=== PATIENT | female | born 1950 | race Two or more races ===

== ENCOUNTER 2016-10-22 17:24 | Inpatient (IN) | payer MEDICAID ==
[~2016-10-22] VITALS: Ht 165.1 cm; Wt 79.2 kg
[~2016-10-22 17:24] MED LIST: ALBUAER3 IN; ASPI81TA27 PO; ATOR20TA50 PO; BISA10SU5 PO; CARI-277 PO; CHOL200021 PO; CITA10TA59 PO; CYANLIQ OR; DIPH-506 OR; FER325T PO; GABA300C8 PO; LEVO50TA7 PO; LINIOIN3 EX; LORA-205 PO; MULT-261 OR; NITR0.4S29 SL; NOR7.5T PO; OMEP20CA5 PO; PANT1INJ3 PO; PROBTAB12 OR; [UNRECOGNIZED DRUG - CODE] PO; [UNRECOGNIZED DRUG - CODE] PO; [UNRECOGNIZED DRUG - CODE] XX
[2016-10-22 18:15] LABS: Basophils # (auto) 0 uL; Basophils % (auto) 0.6 % (0.0-2.0); Eosinophils # (auto) 0.1 uL; Eosinophils % (auto) 2.9 % (0.0-7.0); Hematocrit 34.3 % (36.0-46.0); Hemoglobin 11.4 g/dL (12.2-16.2); Lymphocytes % (auto) 24.7 % (10.0-50.0); Mean Corpuscular Hgb Conc. 33.2 g/dL (32.0-36.0); Mean Corpuscular Volume 96.3 fL (80.0-100.0); Mean Platelet Volume 8.7 fL (7.4-10.4); Monocytes # (auto) 0.4 uL; Monocytes % (auto) 10.9 % (0.0-12.0); Neutrophils # (auto) 2.5 uL; Neutrophils % (auto) 60.9 % (37.0-80.0); Platelet Count (auto) 226 10^3/uL (140-450); Red Cell Distribution Width 13.9 % (11.6-16.0); White Blood Cell 4.1 10^3/uL (4.4-10.8)
[2016-10-22] MEDS ORDERED: ACETAMINOPHEN 325 MG TAB PO ONE ×2 (18:24→18:30)
[2016-10-22 18:35] LABS: Albumin 3.5 g/dL (3.4-5.0); Anion Gap 7 (5-15); Aspartate Aminotransferase 17 U/L (15-37); BUN/Creatinine Ratio 28.1; Blood Urea Nitrogen 25 mg/dL (7-18); Calcium 8.3 mg/dL (8.5-10.1); Carbon Dioxide 28 mmol/L (21-32); Chloride 106 mmol/L (98-107); GFR African American 82 mL/min; GFR Non-African American 68 mL/min; Glucose 87 mg/dL (74-106); Potassium 4.7 mmol/L (3.5-5.1); Sodium 141 mmol/L (136-145)
[2016-10-22 18:40] LABS: Alkaline Phosphatase 90 U/L (45-117); Bilirubin, Total 0.3 mg/dL (0.2-1.0); Total Protein 6.4 g/dL (6.4-8.2)
[2016-10-22] MEDS ORDERED: CARISOPRODOL 350 MG TAB PO ONE (21:15)
[2016-10-22] MEDS ORDERED: MORPHINE SULF INJ 2 MG/ML SYRINGE 1ML IV ONE (21:15)
[2016-10-22] MEDS ORDERED: ONDANSETRON HCL 4 MG/2 ML VIAL IV ONE (21:15)
[2016-10-22] MEDS ORDERED: SODIUM CHLORIDE 0.9% 1,000 ML IV ONE (21:30)
[2016-10-22 21:41] LABS: Urine RBC None Seen /hpf (0 - 4)
[2016-10-22 21:48] LABS: Urine Bilirubin Negative (Negative); Urine Blood Negative /uL (Negative); Urine Color Yellow (Yellow); Urine Glucose Normal (Normal); Urine Ketone Negative (Negative); Urine Nitrite Negative (Negative); Urine Squamous Epithelial Cell FEW /hpf (<5); Urine Urobilinogen Normal (Negative); Urine pH 5.5 (5.0-8.0)
[2016-10-22] MEDS ORDERED: HYDROcodone-ACET 5/325MG TAB PO PRN (23:30)
[2016-10-22] MEDS ORDERED: ACETAMINOPHEN 325 MG TAB PO PRN (23:30)
[2016-10-22] MEDS ORDERED: MECLIZINE HCL 25 MG TAB PO PRN (23:45)
[2016-10-23] VITALS (8 sets, daily range): BP systolic 85–146; BP diastolic 50–99
[2016-10-23] MEDS: LORazepam 0.5 MG TAB PO PRN ×2 (01:17→21:28)
[2016-10-23] MEDS: CARISOPRODOL 350 MG TAB PO PRN ×2 (01:17→21:28)
[2016-10-23] MEDS: KETOROLAC TROMETH 30 MG/ML 1ML VIAL IV PRN ×3 (02:46→19:02)
[2016-10-23 06:03] LABS: Basophils # (auto) 0 uL; Basophils % (auto) 0.5 % (0.0-2.0); Eosinophils # (auto) 0.2 uL; Eosinophils % (auto) 4.6 % (0.0-7.0); Hemoglobin 10.7 g/dL (12.2-16.2); Lymphocytes # (auto) 1.5 uL; Lymphocytes % (auto) 32.7 % (10.0-50.0); Mean Corpuscular Hemoglobin 31.6 pg (28.0-32.0); Mean Corpuscular Hgb Conc. 32.3 g/dL (32.0-36.0); Mean Corpuscular Volume 97.8 fL (80.0-100.0); Monocytes # (auto) 0.5 uL; Neutrophils # (auto) 2.3 uL; Neutrophils % (auto) 51.2 % (37.0-80.0); Platelet Count (auto) 210 10^3/uL (140-450); White Blood Cell 4.6 10^3/uL (4.4-10.8)
[2016-10-23] MEDS: traMADol HCL 50 MG TAB PO PRN ×2 (06:25→17:13)
[2016-10-23] MEDS: LEVOTHYROXINE SODIUM 50 MCG TAB PO SCH (06:25)
[2016-10-23 06:26] LABS: Potassium 4.1 mmol/L (3.5-5.1)
[2016-10-23 06:31] LABS: Albumin 3.2 g/dL (3.4-5.0); BUN/Creatinine Ratio 27.1; Calcium 8.2 mg/dL (8.5-10.1)
[2016-10-23 06:34] LABS: Bilirubin, Total 0.3 mg/dL (0.2-1.0); Total Protein 5.8 g/dL (6.4-8.2)
[2016-10-23] MEDS: FERROUS SULFATE 325 MG TAB PO SCH ×2 (09:10→17:47)
[2016-10-23] MEDS: CITALOPRAM HYDROBR 20 MG TAB PO SCH (09:10)
[2016-10-23] MEDS: ENOXAPARIN SOD 40 MG/0.4 ML SYRINGE SC SCH (09:11)
[2016-10-23] MEDS: FAMOTIDINE 20 MG TAB PO SCH ×2 (09:11→21:28)
[2016-10-23] MEDS ORDERED: PANTOPRAZOLE 40 MG TAB PO ONE (10:45)
[2016-10-23] MEDS: ONDANSETRON HCL 4 MG/2 ML VIAL IV PRN ×2 (11:27→15:56)
[2016-10-23] MEDS: MORPHINE SULF INJ 2 MG/ML SYRINGE 1ML IV PRN ×2 (11:27→15:56)
[2016-10-23] MEDS: BOOST PLUS 8 ounce PO SCH ×2 (14:41→17:47)
[2016-10-23] MEDS: ATORVASTATIN 20 MG TAB PO SCH (21:28)
[2016-10-24] VITALS (7 sets, daily range): BP systolic 89–121; BP diastolic 51–99
[2016-10-24] MEDS: MORPHINE SULF INJ 2 MG/ML SYRINGE 1ML IV PRN ×4 (01:40→20:39)
[2016-10-24] MEDS: ONDANSETRON HCL 4 MG/2 ML VIAL IV PRN ×3 (01:41→20:40)
[2016-10-24] MEDS: traMADol HCL 50 MG TAB PO PRN (06:14)
[2016-10-24] MEDS: LEVOTHYROXINE SODIUM 50 MCG TAB PO SCH (06:14)
[2016-10-24 07:06] LABS: Albumin 3.3 g/dL (3.4-5.0); BUN/Creatinine Ratio 21.7; Calcium 8.5 mg/dL (8.5-10.1); Potassium 4.4 mmol/L (3.5-5.1)
[2016-10-24 07:09] LABS: Bilirubin, Total 0.3 mg/dL (0.2-1.0); Total Protein 6.2 g/dL (6.4-8.2)
[2016-10-24 07:10] LABS: Basophils # (auto) 0 uL; Basophils % (auto) 0.5 % (0.0-2.0); Eosinophils # (auto) 0.1 uL; Eosinophils % (auto) 2.5 % (0.0-7.0); Hematocrit 34.2 % (36.0-46.0); Hemoglobin 11.2 g/dL (12.2-16.2); Lymphocytes # (auto) 1.1 uL; Lymphocytes % (auto) 17.9 % (10.0-50.0); Mean Corpuscular Hemoglobin 31.9 pg (28.0-32.0); Mean Corpuscular Hgb Conc. 32.7 g/dL (32.0-36.0); Mean Corpuscular Volume 97.4 fL (80.0-100.0); Mean Platelet Volume 9.2 fL (7.4-10.4); Monocytes # (auto) 0.5 uL; Monocytes % (auto) 7.8 % (0.0-12.0); Neutrophils # (auto) 4.2 uL; Neutrophils % (auto) 71.3 % (37.0-80.0); Platelet Count (auto) 194 10^3/uL (140-450); Red Cell Distribution Width 14.4 % (11.6-16.0); White Blood Cell 5.9 10^3/uL (4.4-10.8)
[2016-10-24] MEDS: ENOXAPARIN SOD 40 MG/0.4 ML SYRINGE SC SCH (09:10)
[2016-10-24] MEDS: FAMOTIDINE 20 MG TAB PO SCH ×2 (09:10→22:20)
[2016-10-24] MEDS: FERROUS SULFATE 325 MG TAB PO SCH ×2 (09:10→17:16)
[2016-10-24] MEDS: PANTOPRAZOLE 40 MG TAB PO SCH (09:11)
[2016-10-24] MEDS: BOOST PLUS 8 ounce PO SCH ×3 (09:11→18:48)
[2016-10-24] MEDS: CITALOPRAM HYDROBR 20 MG TAB PO SCH (09:11)
[2016-10-24] MEDS: CARISOPRODOL 350 MG TAB PO PRN (22:20)
[2016-10-24] MEDS: LORazepam 0.5 MG TAB PO PRN (22:20)
[2016-10-24] MEDS: ATORVASTATIN 20 MG TAB PO SCH (22:20)
[2016-10-25] MEDS: MORPHINE SULF INJ 2 MG/ML SYRINGE 1ML IV PRN ×2 (00:46→04:51)
[2016-10-25] MEDS: ONDANSETRON HCL 4 MG/2 ML VIAL IV PRN (00:58)
[2016-10-25 04:49] VITALS: BP 98/62
[2016-10-25] MEDS: LEVOTHYROXINE SODIUM 50 MCG TAB PO SCH (06:26)
[2016-10-25] MEDS: BOOST PLUS 8 ounce PO SCH ×3 (08:00→18:08)
[2016-10-25] MEDS: KETOROLAC TROMETH 30 MG/ML 1ML VIAL IV PRN ×2 (08:45→18:08)
[2016-10-25] MEDS: FERROUS SULFATE 325 MG TAB PO SCH ×2 (08:45→18:08)
[2016-10-25 09:00] VITALS: BP 96/54
[2016-10-25] MEDS: FAMOTIDINE 20 MG TAB PO SCH ×2 (10:27→21:29)
[2016-10-25] MEDS: CITALOPRAM HYDROBR 20 MG TAB PO SCH (10:27)
[2016-10-25] MEDS: ENOXAPARIN SOD 40 MG/0.4 ML SYRINGE SC SCH (10:27)
[2016-10-25] MEDS: PANTOPRAZOLE 40 MG TAB PO SCH (10:27)
[2016-10-25 13:00] VITALS: BP 75/40
[2016-10-25 17:00] VITALS: BP_SYST 112; BP_SYST 126; BP_SYST 94; BP_DIAS 62; BP_DIAS 70
[2016-10-25] MEDS: CARISOPRODOL 350 MG TAB PO PRN (20:18)
[2016-10-25] MEDS: LORazepam 0.5 MG TAB PO PRN (20:18)
[2016-10-25] MEDS: ATORVASTATIN 20 MG TAB PO SCH (21:28)
[2016-10-25 22:00] VITALS: BP_SYST 107; BP_SYST 111; BP_SYST 86; BP_DIAS 37; BP_DIAS 58; BP_DIAS 62
[2016-10-26] MEDS: KETOROLAC TROMETH 30 MG/ML 1ML VIAL IV PRN ×4 (01:18→21:21)
[2016-10-26 05:00] VITALS: BP_SYST 110; BP_SYST 124; BP_SYST 88; BP_DIAS 56; BP_DIAS 66; BP_DIAS 67
[2016-10-26] MEDS: LEVOTHYROXINE SODIUM 50 MCG TAB PO SCH (06:40)
[2016-10-26] MEDS: BOOST PLUS 8 ounce PO SCH ×3 (08:12→17:58)
[2016-10-26] MEDS: FERROUS SULFATE 325 MG TAB PO SCH ×2 (08:12→17:58)
[2016-10-26 09:00] VITALS: BP 104/63
[2016-10-26] MEDS: FAMOTIDINE 20 MG TAB PO SCH ×2 (09:41→21:21)
[2016-10-26] MEDS: PANTOPRAZOLE 40 MG TAB PO SCH (09:41)
[2016-10-26] MEDS: ENOXAPARIN SOD 40 MG/0.4 ML SYRINGE SC SCH (09:42)
[2016-10-26] MEDS: CITALOPRAM HYDROBR 20 MG TAB PO SCH (09:42)
[2016-10-26] MEDS: LORazepam 0.5 MG TAB PO PRN (10:41)
[2016-10-26] MEDS: FLUDROCORTISONE ACETATE 0.1 MG TAB PO SCH (12:42)
[2016-10-26 13:00] VITALS: BP 100/69
[2016-10-26 17:00] VITALS: BP 125/73
[2016-10-26] MEDS: MIDODRINE HCL 10 MG TAB PO SCH (17:58)
[2016-10-26] MEDS: ATORVASTATIN 20 MG TAB PO SCH (21:21)
[2016-10-26] MEDS: CARISOPRODOL 350 MG TAB PO PRN (21:35)
[2016-10-26] MEDS: ONDANSETRON HCL 4 MG/2 ML VIAL IV PRN (21:35)
[2016-10-26 22:07] VITALS: BP 105/67
[2016-10-27 06:00] VITALS: BP 115/60
[2016-10-27] MEDS: MIDODRINE HCL 10 MG TAB PO SCH (06:05)
[2016-10-27] MEDS: KETOROLAC TROMETH 30 MG/ML 1ML VIAL IV PRN ×2 (06:05→14:30)
[2016-10-27] MEDS: ONDANSETRON HCL 4 MG/2 ML VIAL IV PRN (06:05)
[2016-10-27] MEDS: LEVOTHYROXINE SODIUM 50 MCG TAB PO SCH (06:05)
[2016-10-27 07:30] LABS: BUN/Creatinine Ratio 20.9; Calcium 8.6 mg/dL (8.5-10.1); Potassium 3.8 mmol/L (3.5-5.1)
[2016-10-27 07:53] LABS: Basophils # (auto) 0 uL; Basophils % (auto) 0.3 % (0.0-2.0); Eosinophils # (auto) 0.2 uL; Hemoglobin 11.4 g/dL (12.2-16.2); Lymphocytes % (auto) 27.3 % (10.0-50.0); Mean Corpuscular Hemoglobin 32.2 pg (28.0-32.0); Mean Corpuscular Hgb Conc. 33.5 g/dL (32.0-36.0); Mean Corpuscular Volume 96.2 fL (80.0-100.0); Mean Platelet Volume 9.5 fL (7.4-10.4); Monocytes # (auto) 0.4 uL; Monocytes % (auto) 10.3 % (0.0-12.0); Neutrophils # (auto) 2.1 uL; Neutrophils % (auto) 57.1 % (37.0-80.0); Platelet Count (auto) 175 10^3/uL (140-450); White Blood Cell 3.6 10^3/uL (4.4-10.8)
[2016-10-27] MEDS: BOOST PLUS 8 ounce PO SCH ×2 (08:00→12:00)
[2016-10-27 09:00] VITALS: BP_SYST 102; BP_SYST 108; BP_DIAS 55; BP_DIAS 63; BP_DIAS 69
[2016-10-27] MEDS: FERROUS SULFATE 325 MG TAB PO SCH (09:18)
[2016-10-27] MEDS: FLUDROCORTISONE ACETATE 0.1 MG TAB PO SCH (09:29)
[2016-10-27] MEDS: FAMOTIDINE 20 MG TAB PO SCH (09:29)
[2016-10-27] MEDS: PANTOPRAZOLE 40 MG TAB PO SCH (09:29)
[2016-10-27] MEDS: CITALOPRAM HYDROBR 20 MG TAB PO SCH (09:29)
[2016-10-27] MEDS: ENOXAPARIN SOD 40 MG/0.4 ML SYRINGE SC SCH (09:30)
[2016-10-27] MEDS ORDERED: FLUDROCORTISONE ACETATE 0.1 MG TAB PO SCH (10:00)
[2016-10-27 13:00] VITALS: BP_SYST 113; BP_SYST 119; BP_SYST 92; BP_DIAS 60; BP_DIAS 65; BP_DIAS 74
[2016-10-27] MEDS ORDERED: FLU01T PO (13:23)
[2016-10-27 15:51] VITALS: BP 108/69
== END 2016-10-27 16:55 | disposition home or self-care (01) | DRG 206 ==
LOC: EDUNIT# 17:24 → ER 17:34 → OVERFLOW 17:35 → CENTRAL 23:58
PROVIDERS: ADMIT Internal Medicine; ATTEND Nurse Practitioner Acute Care
PROC: 4B02XSZ Measurement of Cardiac Pacemaker, External Approach (ICD-10-PCS; principal; 2016-10-22)
DX: T82.119A Breakdown (mechanical) of unspecified cardiac electronic device, initial encounter (principal); E44.0 Moderate protein-calorie malnutrition; G62.9 Polyneuropathy, unspecified; D63.8 Anemia in other chronic diseases classified elsewhere; F32.9 Major depressive disorder, single episode, unspecified; S52.612A Displaced fracture of left ulna styloid process, initial encounter for closed fracture; S62.102A Fracture of unspecified carpal bone, left wrist, initial encounter for closed fracture; E03.9 Hypothyroidism, unspecified; E66.9 Obesity, unspecified; I25.10 Atherosclerotic heart disease of native coronary artery without angina pectoris; N18.2 Chronic kidney disease, stage 2 (mild); E78.5 Hyperlipidemia, unspecified; I95.1 Orthostatic hypotension; J45.909 Unspecified asthma, uncomplicated; M79.7 Fibromyalgia; M81.0 Age-related osteoporosis without current pathological fracture; Z80.3 Family history of malignant neoplasm of breast; Z82.49 Family history of ischemic heart disease and other diseases of the circulatory system; Z83.3 Family history of diabetes mellitus; Z83.79 Family history of other diseases of the digestive system; Z98.84 Bariatric surgery status; F41.9 Anxiety disorder, unspecified; M19.90 Unspecified osteoarthritis, unspecified site; Z90.49 Acquired absence of other specified parts of digestive tract; Z90.710 Acquired absence of both cervix and uterus; Z90.89 Acquired absence of other organs; Z88.5 Allergy status to narcotic agent; Z79.82 Long term (current) use of aspirin; R26.9 Unspecified abnormalities of gait and mobility; Y93.89 Activity, other specified; Y92.89 Other specified places as the place of occurrence of the external cause; Y99.8 Other external cause status
CPT/HCPCS: 29125; 36415; 70450; 73090; 80048; 80053; 81001; 84484; 85025; 93005; 96361; 96374; 96375; 97001; 97116; 97530; J1885; J2405

== ENCOUNTER → 2016-12-30 | Outpatient (CLI) | payer MEDICAID ==
[~2016-12-30] VITALS: Ht 157.5 cm; Wt 70.3 kg
[~2016-12-30] MED LIST changes: +CALC-386 PO; +CHL4PW PO; +CHOL20002 PO; +CITA-36 PO; +CITA-73 PO; +FLU01T PO; +FLUT250M2 INH; +GABA-497 PO; +GABA-498 PO; -GABA300C8 PO; +HYDR-391 PO; +LORA2TAB10 PO; +MULT-690 PO; +OMEG1CAP36 PO; -OMEP20CA5 PO; +OMEP20CA74 PO; +PANT40T PO; +PYRI200T8 PO; +SIMV-13 PO
[2016-12-30 10:05] VITALS: BP 109/70
[2016-12-30 11:12] VITALS: BP 115/72
[2016-12-30 12:03] LABS: Basophils # (auto) 0 uL; Basophils % (auto) 0.2 % (0.0-2.0); CONDITION Y; Eosinophils # (auto) 0.1 uL; Eosinophils % (auto) 2.1 % (0.0-7.0); Hematocrit 42.1 % (36.0-46.0); Hemoglobin 13.9 g/dL (12.2-16.2); Lymphocytes # (auto) 1.1 uL; Mean Corpuscular Hemoglobin 31.9 pg (28.0-32.0); Mean Corpuscular Hgb Conc. 33.2 g/dL (32.0-36.0); Mean Corpuscular Volume 96.2 fL (80.0-100.0); Mean Platelet Volume 9.8 fL (7.4-10.4); Monocytes # (auto) 0.4 uL; Monocytes % (auto) 8.9 % (0.0-12.0); Neutrophils # (auto) 3.3 uL; Neutrophils % (auto) 66.8 % (37.0-80.0); Platelet Count (auto) 212 10^3/uL (140-450); Red Cell Distribution Width 14.7 % (11.6-16.0); White Blood Cell 4.9 10^3/uL (4.4-10.8)
[2016-12-30 12:18] LABS: BUN/Creatinine Ratio 18.3; Calcium 9.1 mg/dL (8.5-10.1); Potassium 4.3 mmol/L (3.5-5.1)
[2016-12-30 12:25] LABS: INR 1.18 (0.9-1.15); Partial Thromboplastin Time 26.5 sec (22.64-33.71)
[2016-12-30 12:37] LABS: Prothrombin Time 12.9 sec (9.37-12.3)
== END | disposition home or self-care (01) ==
LOC: Rad HDHVI 09:52
PROVIDERS: ATTEND Internal Medicine Cardiovascular Disease
DX: Z01.812 Encounter for preprocedural laboratory examination (principal); I10 Essential (primary) hypertension; J45.909 Unspecified asthma, uncomplicated; E78.5 Hyperlipidemia, unspecified; D64.9 Anemia, unspecified; R79.1 Abnormal coagulation profile
CPT/HCPCS: 36415; 80048; 85025; 85610; 85730; 93005; G0463

== ENCOUNTER 2017-01-02 08:41 | Inpatient (IN) | payer MEDICAID ==
[~2017-01-02] VITALS: Ht 157.5 cm; Wt 78.8 kg
[2017-01-02] MEDS ORDERED: ceFAZolin 1GM/50ML D5W 50 ML IV ONE (09:15)
[2017-01-02] MEDS ORDERED: VANCOMYCIN HCL 1000 MG VL IR ONE (09:15)
[2017-01-02] MEDS ORDERED: VANCOMYCIN 1GM/250ML D5W 250 ML IV ONE (09:15)
[2017-01-02] MEDS ORDERED: METOCLOPRAMIDE HCL 5MG/ml INJ 2ml VIAL IV ONE (09:30)
[2017-01-02] MEDS ORDERED: LIDOCAINE 2%HCL (LOCAL ANESTH.) INJ 20ML MDV ONE (11:44)
[2017-01-02] MEDS ORDERED: MIDAZOLAM HCL 1MG/1ML-2 ML VIAL ONE (12:13)
[2017-01-02] MEDS ORDERED: fentaNYL CITRATE 100 MCG/2 ML VL ONE (12:13)
[2017-01-02] MEDS ORDERED: ONDANSETRON HCL 4 MG/2 ML VIAL ONE (12:16)
[2017-01-02] MEDS ORDERED: SODIUM CHLORIDE 0.9% 1,000 ML IV SCH (14:01)
[2017-01-02] MEDS ORDERED: MORPHINE SULFATE 4 MG/ML SYRG IV PRN (14:15)
[2017-01-02] MEDS ORDERED: NITROGLYCERIN 0.4 MG SL TAB SL PRN (14:15)
[2017-01-02] MEDS ORDERED: ACETAMINOPHEN 325 MG TAB PO PRN (14:15)
[2017-01-02] MEDS ORDERED: HYDROcodone-ACET 10/325MG TAB ONE (14:28)
[2017-01-02] MEDS ORDERED: DEXTROSE (50%) 50ML SYRG IV PRN (16:15)
[2017-01-02] MEDS ORDERED: LORazepam 0.5 MG TAB PO PRN (16:15)
[2017-01-02 16:27] VITALS: BP 143/81
[2017-01-02] MEDS: InsuLIN REG 1unit/0.01ml Soln (100units/ml) SC SCH (17:00)
[2017-01-02] MEDS: ACCU-CHEK COMFORT CURVE STRIP VI SCH ×2 (17:00→21:25)
[2017-01-02] MEDS: CARISOPRODOL 350 MG TAB PO SCH ×2 (17:34→21:04)
[2017-01-02] MEDS ORDERED: PATIENTS OWN MEDICATION (Simvastatin 1 TAB) PO SCH ×2 (18:00)
[2017-01-02] MEDS ORDERED: ONDANSETRON HCL 4 MG/2 ML VIAL IV PRN (19:15)
[2017-01-02] MEDS: ALBUTEROL SULF 2.5 MG/0.5ML(0.5%) NEB SOLN NEB SCH ×2 (19:21→23:42)
[2017-01-02] MEDS: HYDROmorphone HCL 2 MG/ML VL IV PRN (19:45)
[2017-01-02 22:00] VITALS: BP 98/61
[2017-01-02] MEDS ORDERED: InsuLIN REG 1unit/0.01ml Soln (100units/ml) SC SCH (22:00)
[2017-01-02] MEDS ORDERED: ATORVASTATIN 20 MG TAB PO SCH (22:00)
[2017-01-02] MEDS ORDERED: diphenhdrAMINE HCL 25 MG CAP PO PRN (22:00)
[2017-01-02] MEDS: VANCOMYCIN 1GM/250ML D5W 250 ML IV SCH (22:03)
[2017-01-02] MEDS: FERROUS SULFATE 325 MG TAB PO SCH (22:03)
[2017-01-02] MEDS: GABAPENTIN 300 MG CAP PO SCH (22:04)
[2017-01-02] MEDS: BUDESONIDE (INHALATION) 0.5 MG/2 ML NEB NEB SCH (23:42)
[2017-01-03] MEDS: HYDROmorphone HCL 2 MG/ML VL IV PRN (00:43)
[2017-01-03 01:22] VITALS: BP 98/61
[2017-01-03] MEDS: CARISOPRODOL 350 MG TAB PO SCH ×4 (03:02→20:15)
[2017-01-03 05:00] VITALS: BP 97/58
[2017-01-03] MEDS: HYDROcodone-ACET 10/325MG TAB PO PRN ×3 (05:35→14:57)
[2017-01-03] MEDS: BUDESONIDE (INHALATION) 0.5 MG/2 ML NEB NEB SCH ×2 (06:15→19:46)
[2017-01-03] MEDS: ALBUTEROL SULF 2.5 MG/0.5ML(0.5%) NEB SOLN NEB SCH ×3 (06:15→19:46)
[2017-01-03] MEDS: GABAPENTIN 300 MG CAP PO SCH ×2 (06:15→14:57)
[2017-01-03] MEDS: InsuLIN REG 1unit/0.01ml Soln (100units/ml) SC SCH ×3 (06:18→17:00)
[2017-01-03] MEDS: ACCU-CHEK COMFORT CURVE STRIP VI SCH ×3 (06:18→17:00)
[2017-01-03 08:00] VITALS: BP 84/42
[2017-01-03 09:07] VITALS: BP 84/42
[2017-01-03] MEDS ORDERED: OMEPRAZOLE 20MG/10ML ORAL SUSP PO SCH (10:00)
[2017-01-03] MEDS: FERROUS SULFATE 325 MG TAB PO SCH (10:00)
[2017-01-03] MEDS ORDERED: CITALOPRAM HYDROBR 20 MG TAB PO SCH (10:00)
[2017-01-03] MEDS ORDERED: LEVOTHYROXINE SODIUM 50 MCG TAB PO SCH (10:00)
[2017-01-03] MEDS ORDERED: ATORVASTATIN 20 MG TAB PO SCH (10:00)
[2017-01-03] MEDS: VANCOMYCIN 1GM/250ML D5W 250 ML IV SCH (10:06)
[2017-01-03 13:01] VITALS: BP 92/52
[2017-01-03 17:00] VITALS: BP 105/54
[2017-01-04] MEDS ORDERED: PANTOPRAZOLE 40 MG TAB PO SCH (10:00)
== END 2017-01-03 20:30 | disposition home or self-care (01) | DRG 177 ==
LOC: CATH 08:41 → TELE-WESTW 08:42
PROVIDERS: ADMIT Internal Medicine Cardiovascular Disease; ATTEND Internal Medicine Cardiovascular Disease
PROC: 02WA3MZ Revision of Cardiac Lead in Heart, Percutaneous Approach (ICD-10-PCS; principal; 2017-01-02)
DX: R07.9 Chest pain, unspecified (principal)
CPT/HCPCS: 33218; 71010; 82962; 93005; 94640; 99152; J0690; J2250; J2405

== ENCOUNTER → 2017-01-21 | Outpatient (CLI) | payer MEDICAID ==
[~2017-01-21] MED LIST changes: -ASPI81TA27 PO; -CHOL20002 PO; -CITA10TA59 PO
[2017-01-21 10:15] VITALS: BP 116/74
[2017-01-21 10:45] VITALS: BP 122/85
== END | disposition home or self-care (01) ==
LOC: CHF HDHVI 09:59
PROVIDERS: ATTEND Internal Medicine Cardiovascular Disease
DX: Z45.010 Encounter for checking and testing of cardiac pacemaker pulse generator [battery] (principal)
CPT/HCPCS: G0463

== ENCOUNTER 2017-05-13 11:16 | Emergency (ER) | payer MEDICAID ==
[~2017-05-13] VITALS: Ht 160 cm; Wt 72.6 kg
[~2017-05-13 11:16] MED LIST changes: +[UNRECOGNIZED DRUG - CODE] PO; -[UNRECOGNIZED DRUG - CODE] PO
[2017-05-13] MEDS ORDERED: SODIUM CHLORIDE 0.9% 1,000 ML IV ONE (11:44)
[2017-05-13 12:05] LABS: Basophils # (auto) 0 uL; Eosinophils # (auto) 0.2 uL; Hemoglobin 12.5 g/dL (12.2-16.2); Monocytes # (auto) 0.5 uL
[2017-05-13 12:07] LABS: Basophils % (auto) 0.6 % (0.0-2.0); Eosinophils % (auto) 3.1 % (0.0-7.0); Hematocrit 38.5 % (36.0-46.0); Lymphocytes # (auto) 1.3 uL; Lymphocytes % (auto) 24.1 % (10.0-50.0); Mean Corpuscular Hemoglobin 33.4 pg (28.0-32.0); Mean Corpuscular Hgb Conc. 32.5 g/dL (32.0-36.0); Mean Corpuscular Volume 102.8 fL (80.0-100.0); Monocytes % (auto) 8.3 % (0.0-12.0); Neutrophils # (auto) 3.5 uL; Neutrophils % (auto) 63.9 % (37.0-80.0); Platelet Count (auto) 165 10^3/uL (140-450); White Blood Cell 5.5 10^3/uL (4.4-10.8)
[2017-05-13 12:15] LABS: Albumin 3.6 g/dL (3.4-5.0); Anion Gap 6 (5-15); Aspartate Aminotransferase 31 U/L (15-37); Blood Urea Nitrogen 15 mg/dL (7-18); Calcium 8.6 mg/dL (8.5-10.1); Carbon Dioxide 26 mmol/L (21-32); Chloride 110 mmol/L (98-107); GFR African American 100 mL/min; GFR Non-African American 83 mL/min; Glucose 99 mg/dL (74-106); Magnesium 2.5 mg/dL (1.6-2.6); Potassium 4.2 mmol/L (3.5-5.1); Sodium 142 mmol/L (136-145)
[2017-05-13 12:20] LABS: Alkaline Phosphatase 93 U/L (45-117); Bilirubin, Total 0.2 mg/dL (0.2-1.0); Total Protein 6.6 g/dL (6.4-8.2)
[2017-05-13] MEDS ORDERED: FERROUS SULFATE 300 MG/5 ML ORAL LIQ GT ONE (13:15)
[2017-05-13 13:39] VITALS: BP 114/64
== END 2017-05-13 13:39 | disposition home or self-care (01) ==
LOC: EDBD 11:16 → ER 11:16
DX: D50.9 Iron deficiency anemia, unspecified (principal); E11.9 Type 2 diabetes mellitus without complications; Z90.49 Acquired absence of other specified parts of digestive tract; Z90.710 Acquired absence of both cervix and uterus; Z95.0 Presence of cardiac pacemaker; Z79.899 Other long term (current) drug therapy; Z88.6 Allergy status to analgesic agent; Z88.5 Allergy status to narcotic agent
CPT/HCPCS: 36415; 70450; 71010; 80053; 83735; 84484; 85025; 93005; 94761; 96360; 99285; J7030

== ENCOUNTER 2017-08-09 16:11 | Inpatient (IN) | payer MEDICAID ==
[~2017-08-09] VITALS: Ht 154.9 cm; Wt 81.1 kg
[~2017-08-09 16:11] MED LIST changes: -GABA-497 PO; -GABA-498 PO; +GABA300C10 PO; +GABA400C11 PO; -HYDR-391 PO; +HYDR-392 PO
[2017-08-09] MEDS ORDERED: IPRATROPIUM BROM 0.5 MG/2.5ML INH SOL HHN ONE (16:45)
[2017-08-09] MEDS ORDERED: cefTRIAXone 1GM/10ml IVPUSH 10 ML IV ONE (16:45)
[2017-08-09] MEDS ORDERED: ALBUTEROL SULF 2.5 MG/0.5ML(0.5%) NEB SOLN HHN ONE (16:45)
[2017-08-09] MEDS ORDERED: methylPREDNISolone SOD SUCC 125 MG/2 ML VL IV ONE (16:45)
[2017-08-09 17:47] LABS: Basophils # (auto) 0 uL; Basophils % (auto) 0.9 % (0.0-2.0); Eosinophils # (auto) 0.1 uL; Hematocrit 38.5 % (36.0-46.0); Hemoglobin 12.5 g/dL (12.2-16.2); Lymphocytes # (auto) 1.4 uL; Lymphocytes % (auto) 28.7 % (10.0-50.0); Mean Corpuscular Hemoglobin 32.5 pg (28.0-32.0); Mean Corpuscular Hgb Conc. 32.5 g/dL (32.0-36.0); Mean Corpuscular Volume 100.1 fL (80.0-100.0); Monocytes # (auto) 0.7 uL; Monocytes % (auto) 14.9 % (0.0-12.0); Neutrophils # (auto) 2.7 uL; Neutrophils % (auto) 53.5 % (37.0-80.0); Platelet Count (auto) 293 10^3/uL (140-450); Red Blood Cells 3.85 10^6/uL (4.0-5.20); Red Cell Distribution Width 16.5 % (11.8-14.3)
[2017-08-09 18:08] LABS: Lactic Acid w/Reflex 3.2 mmol/L (0.4-2.0)
[2017-08-09 18:10] LABS: Albumin 3.9 g/dL (3.4-5.0); BUN/Creatinine Ratio 15.5; Bilirubin, Total 0.4 mg/dL (0.2-1.0); Calcium 9.1 mg/dL (8.5-10.1); Potassium 3.7 mmol/L (3.5-5.1); Total Protein 7.5 g/dL (6.4-8.2)
[2017-08-09 18:13] LABS: Magnesium 2.2 mg/dL (1.6-2.6)
[2017-08-09] MEDS ORDERED: SODIUM CHLORIDE 0.9% 1,000 ML IV ONE (20:30)
[2017-08-09 20:39] LABS: Urine Bacteria FEW /hpf (None Seen); Urine Blood Negative /uL (Negative); Urine Mucus FEW (None Seen); Urine Specific Gravity 1.017 (1.001-1.035); Urine WBC 14 /hpf (0 - 5)
[2017-08-09] MEDS ORDERED: KETOROLAC TROMETH 30 MG/ML 1ML VIAL IV ONE (21:00)
[2017-08-09] MEDS ORDERED: ACETAMINOPHEN 500 MG TAB PO PRN (23:30)
[2017-08-09] MEDS ORDERED: ONDANSETRON HCL 4 MG/2 ML VIAL IV PRN (23:30)
[2017-08-09] MEDS ORDERED: DEXTROSE (50%) 50ML SYRG IV PRN (23:45)
[2017-08-10] VITALS (9 sets, daily range): BP systolic 96–117; BP diastolic 59–77
[2017-08-10] MEDS: ALBUTEROL SULF 2.5 MG/0.5ML(0.5%) NEB SOLN NEB SCH ×4 (01:16→19:27)
[2017-08-10] MEDS: IPRATROPIUM BROM 0.5 MG/2.5ML INH SOL NEB SCH ×4 (01:17→19:27)
[2017-08-10] MEDS: HYDROcodone-ACET 5/325MG TAB PO PRN ×5 (01:20→20:49)
[2017-08-10] MEDS: LORazepam 0.5 MG TAB PO PRN ×2 (01:21→14:23)
[2017-08-10] MEDS ORDERED: PNEUMOCOCCAL VACC POLYS 25 MCG/0.5 ML VIAL IM SCH (05:30)
[2017-08-10 06:41] LABS: Basophils # (auto) 0 uL; Basophils % (auto) 0.1 % (0.0-2.0); Eosinophils # (auto) 0 uL; Hematocrit 34.3 % (36.0-46.0); Hemoglobin 11.3 g/dL (12.2-16.2); Lymphocytes # (auto) 0.4 uL; Mean Corpuscular Volume 100.1 fL (80.0-100.0); Monocytes # (auto) 0.2 uL; Monocytes % (auto) 4.7 % (0.0-12.0); Neutrophils # (auto) 3.9 uL; Neutrophils % (auto) 86.2 % (37.0-80.0); Platelet Count (auto) 275 10^3/uL (140-450); Red Blood Cells 3.43 10^6/uL (4.0-5.20); White Blood Cell 4.5 10^3/uL (4.4-10.8)
[2017-08-10] MEDS: InsuLIN REG 1unit/0.01ml Soln (100units/ml) SC SCH ×4 (06:54→22:00)
[2017-08-10 06:55] LABS: BUN/Creatinine Ratio 14.5; Calcium 8.5 mg/dL (8.5-10.1); Potassium 4.6 mmol/L (3.5-5.1)
[2017-08-10] MEDS: GABAPENTIN 400 MG CAP PO SCH ×3 (06:55→21:55)
[2017-08-10] MEDS: LEVOTHYROXINE SODIUM 50 MCG TAB PO SCH (06:56)
[2017-08-10] MEDS: ACCU-CHEK COMFORT CURVE STRIP VI SCH ×4 (06:56→23:25)
[2017-08-10] MEDS ORDERED: LEVO-28 PO (07:46)
[2017-08-10] MEDS ORDERED: ALBUAER3 IN (07:48)
[2017-08-10] MEDS: PANTOPRAZOLE 40 MG TAB PO SCH (09:42)
[2017-08-10] MEDS: AZITHROMYCIN 500MG/ 250ML 250 ML IV SCH (09:43)
[2017-08-11] MEDS: IPRATROPIUM BROM 0.5 MG/2.5ML INH SOL NEB SCH ×4 (00:45→17:40)
[2017-08-11] MEDS: ALBUTEROL SULF 2.5 MG/0.5ML(0.5%) NEB SOLN NEB SCH ×4 (00:45→17:41)
[2017-08-11 05:22] VITALS: BP 119/65
[2017-08-11] MEDS: LEVOTHYROXINE SODIUM 50 MCG TAB PO SCH (06:26)
[2017-08-11] MEDS: GABAPENTIN 400 MG CAP PO SCH ×3 (06:26→22:00)
[2017-08-11] MEDS: ACCU-CHEK COMFORT CURVE STRIP VI SCH ×4 (06:27→22:00)
[2017-08-11] MEDS: InsuLIN REG 1unit/0.01ml Soln (100units/ml) SC SCH ×4 (06:27→22:00)
[2017-08-11 08:00] VITALS: BP 119/74
[2017-08-11 08:15] VITALS: BP 119/72
[2017-08-11] MEDS: AZITHROMYCIN 500MG/ 250ML 250 ML IV SCH (10:00)
[2017-08-11] MEDS: PANTOPRAZOLE 40 MG TAB PO SCH (10:41)
[2017-08-11 12:12] VITALS: BP 116/73
[2017-08-11] MEDS: HYDROcodone-ACET 5/325MG TAB PO PRN ×2 (13:40→20:34)
[2017-08-11 18:07] VITALS: BP 111/71
[2017-08-11] MEDS: LORazepam 0.5 MG TAB PO PRN (18:52)
[2017-08-12 00:12] VITALS: BP 124/81
[2017-08-12] MEDS: ALBUTEROL SULF 2.5 MG/0.5ML(0.5%) NEB SOLN NEB SCH ×3 (00:41→13:00)
[2017-08-12] MEDS: IPRATROPIUM BROM 0.5 MG/2.5ML INH SOL NEB SCH ×3 (00:41→13:00)
[2017-08-12] MEDS: InsuLIN REG 1unit/0.01ml Soln (100units/ml) SC SCH ×3 (05:45→17:00)
[2017-08-12] MEDS: ACCU-CHEK COMFORT CURVE STRIP VI SCH ×3 (05:45→17:25)
[2017-08-12 05:50] VITALS: BP 100/56
[2017-08-12] MEDS: GABAPENTIN 400 MG CAP PO SCH ×2 (05:51→13:43)
[2017-08-12] MEDS: LEVOTHYROXINE SODIUM 50 MCG TAB PO SCH (05:52)
[2017-08-12 08:05] VITALS: BP 97/54
[2017-08-12] MEDS ORDERED: AZITHROMYCIN 250 MG TAB PO SCH (10:00)
[2017-08-12] MEDS: PANTOPRAZOLE 40 MG TAB PO SCH (11:03)
[2017-08-12 13:00] VITALS: BP 103/55
[2017-08-12] MEDS: HYDROcodone-ACET 5/325MG TAB PO PRN (13:43)
[2017-08-12 16:17] VITALS: BP 97/54
== END 2017-08-12 18:05 | disposition home or self-care (01) | DRG 139 ==
LOC: EDUNIT# 16:11 → ER 16:11 → EDBD 16:11 → WEST WING 16:12
PROVIDERS: ADMIT Nurse Practitioner Family; ATTEND Internal Medicine Pulmonary Disease
DX: J18.9 Pneumonia, unspecified organism (principal); J96.00 Acute respiratory failure, unspecified whether with hypoxia or hypercapnia; J45.901 Unspecified asthma with (acute) exacerbation; E11.9 Type 2 diabetes mellitus without complications; N39.0 Urinary tract infection, site not specified; D64.9 Anemia, unspecified; E03.9 Hypothyroidism, unspecified; K21.9 Gastro-esophageal reflux disease without esophagitis; K44.9 Diaphragmatic hernia without obstruction or gangrene; M79.7 Fibromyalgia; F41.9 Anxiety disorder, unspecified; K59.00 Constipation, unspecified; Z79.4 Long term (current) use of insulin; Z79.51 Long term (current) use of inhaled steroids; Z79.899 Other long term (current) drug therapy; Z80.3 Family history of malignant neoplasm of breast; Z82.49 Family history of ischemic heart disease and other diseases of the circulatory system; Z83.3 Family history of diabetes mellitus; Z90.710 Acquired absence of both cervix and uterus; Z95.0 Presence of cardiac pacemaker; Z87.442 Personal history of urinary calculi
CPT/HCPCS: 36415; 71046; 80048; 80053; 81001; 82962; 83036; 83605; 83735; 83880; 84484; 85025; 87040; 87804; 93005; 94640; 94761; 96361; 96374; 96375; J1885

== ENCOUNTER 2017-10-24 18:18 | Emergency (ER) | payer MEDICARE, MEDICAID ==
[~2017-10-24] VITALS: Ht 157.5 cm; Wt 72.6 kg
[~2017-10-24 18:18] MED LIST changes: -ATOR20TA50 PO; -BISA10SU5 PO; -CALC-386 PO; -CARI-277 PO; -CHL4PW PO; -CHOL200021 PO; -CITA-73 PO; -CYANLIQ OR; -DIPH-506 OR; -FER325T PO; -FLU01T PO; -FLUT250M2 INH; -GABA400C11 PO; -HYDR-392 PO; -LINIOIN3 EX; -LORA-205 PO; -MULT-261 OR; -MULT-690 PO; -NITR0.4S29 SL; -NOR7.5T PO; -OMEG1CAP36 PO; -OMEP20CA74 PO; -PANT1INJ3 PO; -PYRI200T8 PO; -SIMV-13 PO; -[UNRECOGNIZED DRUG - CODE] PO; -[UNRECOGNIZED DRUG - CODE] PO; -[UNRECOGNIZED DRUG - CODE] XX
[2017-10-24 19:34] LABS: Basophils # (auto) 0 uL; Eosinophils # (auto) 0.1 uL; Eosinophils % (auto) 2.4 % (0.0-7.0); Hematocrit 37.6 % (36.0-46.0); Hemoglobin 12.1 g/dL (12.2-16.2); Lymphocytes # (auto) 1.6 uL; Lymphocytes % (auto) 32.9 % (10.0-50.0); Mean Corpuscular Hemoglobin 31.4 pg (28.0-32.0); Mean Corpuscular Hgb Conc. 32.2 g/dL (32.0-36.0); Mean Corpuscular Volume 97.8 fL (80.0-100.0); Monocytes # (auto) 0.5 uL; Monocytes % (auto) 9.8 % (0.0-12.0); Neutrophils # (auto) 2.6 uL; Neutrophils % (auto) 53.9 % (37.0-80.0); Nucleated Red Blood Cells % 0.1 %; Platelet Count (auto) 210 10^3/uL (140-450); Red Blood Cells 3.85 10^6/uL (4.0-5.20); Red Cell Distribution Width 17.3 % (11.8-14.3); White Blood Cell 4.7 10^3/uL (4.4-10.8)
[2017-10-24 20:21] LABS: Alanine Aminotransferase 17 U/L (13-56); Albumin 4.3 g/dL (3.4-5.0); Alkaline Phosphatase 97 U/L (45-117); Anion Gap 7 (5-15); Aspartate Aminotransferase 19 U/L (15-37); BUN/Creatinine Ratio 17.5; Bilirubin, Total 0.2 mg/dL (0.2-1.0); Blood Urea Nitrogen 14 mg/dL (7-18); Calcium 9.1 mg/dL (8.5-10.1); Carbon Dioxide 26 mmol/L (21-32); Chloride 105 mmol/L (98-107); GFR African American 93 mL/min; GFR Non-African American 77 mL/min; Glucose 106 mg/dL (74-106); Magnesium 2.3 mg/dL (1.6-2.6); Potassium 4.6 mmol/L (3.5-5.1); Sodium 138 mmol/L (136-145); Total Protein 8.1 g/dL (6.4-8.2)
[2017-10-24 21:00] VITALS: BP 126/78
== END 2017-10-24 22:24 | disposition home or self-care (01) ==
LOC: EDBD 18:18 → ER 18:22
DX: R07.89 Other chest pain (principal); K21.9 Gastro-esophageal reflux disease without esophagitis; E11.9 Type 2 diabetes mellitus without complications; J45.909 Unspecified asthma, uncomplicated; E11.22 Type 2 diabetes mellitus with diabetic chronic kidney disease; N18.9 Chronic kidney disease, unspecified; M81.0 Age-related osteoporosis without current pathological fracture; E78.5 Hyperlipidemia, unspecified; Z90.49 Acquired absence of other specified parts of digestive tract; Z90.710 Acquired absence of both cervix and uterus; Z95.0 Presence of cardiac pacemaker
CPT/HCPCS: 36415; 71046; 76642; 80053; 83735; 84484; 85025; 93005

== ENCOUNTER → 2018-04-20 | Outpatient (CLI) | payer OTHER, MEDICAID | END | disposition home or self-care (01) | LOC: Rad HDHVI 12:41 | PROVIDERS: ATTEND Internal Medicine Cardiovascular Disease | DX: R07.89 Other chest pain (principal); R00.2 Palpitations; I49.5 Sick sinus syndrome | CPT/HCPCS: 93306 ==

== ENCOUNTER 2018-04-24 10:27 | Emergency (ER) | payer OTHER, MEDICAID ==
[~2018-04-24] VITALS: Ht 157.5 cm; Wt 76.7 kg
[~2018-04-24 10:27] MED LIST changes: -ADENOSINE 65 MG in GIVE UN-DILUTED 0 ML IV ONE; -ADENOSINE 90 MG/30 ML INJ IV ONE
[2018-04-24 10:34] VITALS: BP 124/66
[2018-04-24] MEDS ORDERED: DEXAMETHASONE SOD PHOS 10MG/1ML VIAL INJ IM ONE (12:00)
[2018-04-24] MEDS ORDERED: KETOROLAC TROMETH 60MG/2ML VIAL IM ONE (12:00)
== END 2018-04-24 13:34 | disposition home or self-care (01) ==
LOC: ER 10:27
DX: M79.661 Pain in right lower leg (principal); E11.22 Type 2 diabetes mellitus with diabetic chronic kidney disease; N18.9 Chronic kidney disease, unspecified; J45.909 Unspecified asthma, uncomplicated; K21.9 Gastro-esophageal reflux disease without esophagitis; E78.5 Hyperlipidemia, unspecified; Z90.49 Acquired absence of other specified parts of digestive tract; Z90.710 Acquired absence of both cervix and uterus; Z96.89 Presence of other specified functional implants
CPT/HCPCS: 93971; 96372; 99284; J1100; J1885

== ENCOUNTER → 2018-04-24 | Outpatient (CLI) | payer OTHER, MEDICAID ==
[~2018-04-24] VITALS: Ht 157.5 cm; Wt 77.1 kg
[~2018-04-24] MED LIST changes: +ADENOSINE 65 MG in GIVE UN-DILUTED 0 ML IV ONE; +ADENOSINE 90 MG/30 ML INJ IV ONE
== END | disposition home or self-care (01) ==
LOC: Rad HDHVI 08:06
PROVIDERS: ATTEND Internal Medicine Cardiovascular Disease
DX: I49.5 Sick sinus syndrome (principal); E11.9 Type 2 diabetes mellitus without complications
CPT/HCPCS: 78452; 93005; 96374; 96375; A9500; J0153

== ENCOUNTER 2018-05-06 05:17 | Emergency (ER) | payer OTHER, MEDICAID ==
[~2018-05-06] VITALS: Ht 152.4 cm; Wt 81.6 kg
[2018-05-06] MEDS ORDERED: NALBUPHINE HCL 10 MG/1ml INJECTION IM ONE (07:15)
[2018-05-06] MEDS ORDERED: HYDROcodone-ACET 7.5/325MG TAB PO ONE (07:15)
[2018-05-06 07:20] VITALS: BP 104/76
== END 2018-05-06 07:26 | disposition home or self-care (01) ==
LOC: EDBD 05:17 → ER 05:21
DX: S83.91XA Sprain of unspecified site of right knee, initial encounter (principal); E11.22 Type 2 diabetes mellitus with diabetic chronic kidney disease; N18.9 Chronic kidney disease, unspecified; J45.909 Unspecified asthma, uncomplicated; K21.9 Gastro-esophageal reflux disease without esophagitis; E78.5 Hyperlipidemia, unspecified; Z90.49 Acquired absence of other specified parts of digestive tract; Z90.710 Acquired absence of both cervix and uterus; Z96.89 Presence of other specified functional implants; W06.XXXA Fall from bed, initial encounter; Y93.89 Activity, other specified; Y92.89 Other specified places as the place of occurrence of the external cause; Y99.8 Other external cause status
CPT/HCPCS: 73562

== ENCOUNTER → 2019-07-29 | Outpatient (CLI) | payer MEDICARE, MEDICAID ==
[~2019-07-29] MED LIST changes: +ACET-1156 PO; +AMIT25TA9 PO; +CHOL20007 OR; +MELA3TAB27 PO
== END | disposition home or self-care (01) ==
LOC: Rad HDHVI 14:17
PROVIDERS: ATTEND Internal Medicine Cardiovascular Disease
DX: I34.0 Nonrheumatic mitral (valve) insufficiency (principal); J44.9 Chronic obstructive pulmonary disease, unspecified; E11.9 Type 2 diabetes mellitus without complications; R00.2 Palpitations
CPT/HCPCS: 93306

== ENCOUNTER → 2019-08-03 | Outpatient (CLI) | payer MEDICARE, MEDICAID ==
[~2019-08-03] VITALS: Ht 157.5 cm; Wt 73.5 kg
[~2019-08-03] MED LIST changes: +ADENOSINE 62 MG in GIVE UN-DILUTED 0 ML IV ONE; +ADENOSINE 90 MG/30 ML INJ IV ONE
== END | disposition home or self-care (01) ==
LOC: Rad HDHVI 13:56
PROVIDERS: ATTEND Internal Medicine Cardiovascular Disease
DX: I49.5 Sick sinus syndrome (principal); R07.89 Other chest pain; E11.9 Type 2 diabetes mellitus without complications; M54.5 Low back pain; E78.00 Pure hypercholesterolemia, unspecified; Z95.0 Presence of cardiac pacemaker
CPT/HCPCS: 78452; 93005; 96374; 96375; A9500; J0153

== ENCOUNTER 2020-04-09 13:57 | Emergency (ER) | payer MEDICARE, MEDICAID ==
[~2020-04-09] VITALS: Ht 167.6 cm; Wt 72.6 kg
[~2020-04-09 13:57] MED LIST changes: -ADENOSINE 62 MG in GIVE UN-DILUTED 0 ML IV ONE; -ADENOSINE 90 MG/30 ML INJ IV ONE; -LORA2TAB10 PO; +LORA2TAB12 PO
[2020-04-09 14:47] LABS: Basophils # (auto) 0 10 ^3/uL (0-0.2); Basophils % (auto) 0.3 % (0.0-2.0); Eosinophils # (auto) 0.2 10 ^3/uL (0-0.8); Eosinophils % (auto) 3.4 % (0.0-7.0); Hematocrit 42.8 % (36.0-46.0); Hemoglobin 14.3 g/dL (12.2-16.2); Lymphocytes # (auto) 1.4 10 ^3/uL (0.4-5.4); Lymphocytes % (auto) 27.8 % (10.0-50.0); Mean Corpuscular Hemoglobin 31.2 pg (28.0-32.0); Mean Corpuscular Hgb Conc. 33.5 g/dL (32.0-36.0); Mean Corpuscular Volume 93.1 fL (80.0-100.0); Monocytes # (auto) 0.5 10 ^3/uL (0-1.3); Monocytes % (auto) 9.1 % (0.0-12.0); Neutrophils # (auto) 2.9 10 ^3/uL (1.6-8.6); Neutrophils % (auto) 59.4 % (37.0-80.0); Nucleated Red Blood Cells % 0.1 %; Platelet Count (auto) 197 10^3/uL (140-450); Red Blood Cells 4.59 10^6/uL (4.0-5.20)
[2020-04-09 14:57] LABS: Albumin 4.1 g/dL (3.4-5.0); Anion Gap 7 (5-15); BUN/Creatinine Ratio 18.5; Blood Urea Nitrogen 17 mg/dL (7-18); Calcium 9.8 mg/dL (8.5-10.1); Carbon Dioxide 28 mmol/L (21-32); Chloride 102 mmol/L (98-107); GFR African American 78 mL/min; GFR Non-African American 65 mL/min; Glucose 99 mg/dL (74-106); Sodium 137 mmol/L (136-145)
[2020-04-09 15:02] LABS: Alanine Aminotransferase 35 U/L (13-56); Alkaline Phosphatase 104 U/L (45-117); Aspartate Aminotransferase 25 U/L (15-37); Bilirubin, Total 0.3 mg/dL (0.2-1.0); Total Protein 7.7 g/dL (6.4-8.2)
[2020-04-09] MEDS ORDERED: ONDANSETRON HCL 4 MG/2 ML VIAL IV ONE (17:30)
[2020-04-09] MEDS ORDERED: MORPHINE SULFATE 4 MG/ML SYR/VIAL IV ONE ×2 (17:30→21:15)
[2020-04-09 18:35] VITALS: BP 118/66
[2020-04-09 23:46] LABS: Urine Bacteria FEW /hpf (None Seen); Urine Blood Negative /uL (Negative); Urine Specific Gravity 1.016 (1.001-1.035); Urine WBC 13 /hpf (0 - 5)
== END 2020-04-09 23:40 | disposition still patient (30) ==
LOC: ER 13:57 → EDBD 13:57 → ER 23:40
DX: R53.1 Weakness (principal); R51.9 Headache, unspecified; E11.22 Type 2 diabetes mellitus with diabetic chronic kidney disease; N18.9 Chronic kidney disease, unspecified; K21.9 Gastro-esophageal reflux disease without esophagitis; E78.5 Hyperlipidemia, unspecified; J44.9 Chronic obstructive pulmonary disease, unspecified; Z90.49 Acquired absence of other specified parts of digestive tract; Z90.710 Acquired absence of both cervix and uterus
CPT/HCPCS: 36415; 70450; 71045; 80053; 81001; 84484; 85025; 93005; 96374; 96375; 96376; 99285; J2270; J2405

== ENCOUNTER 2020-04-12 21:43 | Inpatient (IN) | payer MEDICARE, MEDICAID ==
[~2020-04-12] VITALS: Ht 157.5 cm; Wt 78.4 kg
[2020-04-12 22:55] LABS: Basophils # (auto) 0 10 ^3/uL (0-0.2); Basophils % (auto) 0.2 % (0.0-2.0); Eosinophils # (auto) 0.1 10 ^3/uL (0-0.8); Eosinophils % (auto) 0.6 % (0.0-7.0); Hematocrit 44.7 % (36.0-46.0); Hemoglobin 14.9 g/dL (12.2-16.2); Lymphocytes # (auto) 0.9 10 ^3/uL (0.4-5.4); Lymphocytes % (auto) 8.4 % (10.0-50.0); Mean Corpuscular Hemoglobin 31.4 pg (28.0-32.0); Mean Corpuscular Hgb Conc. 33.4 g/dL (32.0-36.0); Monocytes # (auto) 0.4 10 ^3/uL (0-1.3); Neutrophils # (auto) 9.2 10 ^3/uL (1.6-8.6); Neutrophils % (auto) 86.8 % (37.0-80.0); Nucleated Red Blood Cells % 0.1 %; Platelet Count (auto) 200 10^3/uL (140-450); Red Blood Cells 4.75 10^6/uL (4.0-5.20); Red Cell Distribution Width 14.8 % (11.8-14.3); White Blood Cell 10.5 10^3/uL (4.4-10.8)
[2020-04-12 23:15] LABS: Albumin 4.5 g/dL (3.4-5.0); Potassium 4.8 mmol/L (3.5-5.1)
[2020-04-12 23:16] LABS: Urine Bacteria MANY /hpf (None Seen); Urine Blood Negative /uL (Negative); Urine Hyaline Cast FEW /lpf (0 - 2); Urine Mucus FEW (None Seen); Urine Specific Gravity 1.016 (1.001-1.035); Urine WBC 4 /hpf (0 - 5)
[2020-04-12 23:18] LABS: BUN/Creatinine Ratio 21.7
[2020-04-12 23:29] LABS: Bilirubin, Total 0.3 mg/dL (0.2-1.0); Total Protein 7.6 g/dL (6.4-8.2)
[2020-04-13] MEDS ORDERED: MORPHINE SULF INJ 2 MG/ML SYRINGE 1ML IV ONE (05:30)
[2020-04-13] MEDS ORDERED: ONDANSETRON HCL 4 MG/2 ML VIAL IV ONE (05:30)
[2020-04-13] MEDS ORDERED: HYDROmorphone HCL 2 MG/ML VL IV ONE (09:30)
[2020-04-13] MEDS ORDERED: GASTROGRAFIN 120 ML SOL ONE (09:46)
[2020-04-13] MEDS ORDERED: MORPHINE SULF INJ 2 MG/ML SYRINGE 1ML IV PRN (10:00)
[2020-04-13] MEDS: LORazepam 0.5 MG TAB PO SCH ×2 (10:00→21:42)
[2020-04-13] MEDS ORDERED: SOD CHL 0.9%/ KCL 40MEQ 1,000 ML IV ONE (10:00)
[2020-04-13] MEDS ORDERED: NITROGLYCERIN 0.4 MG SL TAB SL PRN (10:00)
--- NOTE | 2020-04-13 10:55 | NUR ---
MS admit from ER [facility], AVONELIJAH admitted to tele/MS after SBAR received. Patient oriented to Delphine burnette RN, unit, room, bed, and unit policies regarding patient care and visiting hours. Patient weighed by bedscale and encouraged to call if they need something. All questions and concerns addressed, patient verbalized understanding.
[2020-04-13] MEDS: PANTOPRAZOLE 40 MG/10 ML VIAL INJ IV SCH (11:04)
--- NOTE | 2020-04-13 12:00 | NUR ---
DIARRHEA PATIENT HAVING MULTIPLE LARGE BOUTS OF DIARRHEA. HYGIENE ITEMS PROVIDED TO PATIENT. WILL CONTINUE CARE.
[2020-04-13] MEDS: LEVOTHYROXINE SODIUM 25 MCG TAB PO SCH (12:42)
[2020-04-13 13:07] VITALS: BP 124/70
--- NOTE | 2020-04-13 13:30 | NUR ---
PAGED PAGE OUT TO DR ROMERO REGARDING NGT ORDER. AWAITING CALL BACK.
[2020-04-13 16:33] VITALS: BP 153/85
[2020-04-13] MEDS: AMITRIPTYLINE HCL 25 MG TAB PO SCH (18:37)
--- NOTE | 2020-04-13 18:46 | NUR ---
RECEIVED CALL FROM MD SPOKE WITH DR ROMERO REGARDING NEED FOR NGT. PER DR ROMERO CANCEL NGT ORDER. ORDER READ BACK AND VERIFIED, WILL CARRY OUT AND CONTINUE CARE.
--- NOTE | 2020-04-13 19:00 | NUR ---
Opening Shift Note Assumed care of patient, awake and alert. No S/S of distress/SOB or pain. Instructed on POC and to call for assist PRN, will continue to monitor for changes Q1hr and PRN.
[2020-04-13 22:00] VITALS: BP 107/59
[2020-04-14 05:00] VITALS: BP 103/54
[2020-04-14] MEDS: LEVOTHYROXINE SODIUM 25 MCG TAB PO SCH (06:17)
[2020-04-14 08:49] VITALS: BP 105/59
[2020-04-14] MEDS: PANTOPRAZOLE 40 MG/10 ML VIAL INJ IV SCH (09:11)
[2020-04-14] MEDS: HYDROmorphone HCL 2 MG/ML VL IV PRN ×2 (09:11→14:18)
[2020-04-14] MEDS: LORazepam 0.5 MG TAB PO SCH (09:11)
[2020-04-14 12:35] VITALS: BP 92/51
[2020-04-14 16:51] VITALS: BP 107/57
[2020-04-14 17:03] VITALS: BP 132/72
[2020-04-14] MEDS: AMITRIPTYLINE HCL 25 MG TAB PO SCH (17:46)
--- NOTE | 2020-04-14 18:13 | NUR ---
Discharge instructions given as ordered. Encourage to follow up with PMD as instructed. All questions and concerns addressed. Patient verbalized understanding. Medication reconciliation form completed and copy given to patient. IV removed with catheter intact, pressure dressing applied. Patient taken to vehicle via wheelchair with all personal belongings, accompanied by staff. No distress noted at time of departure.
== END 2020-04-14 18:11 | disposition home or self-care (01) | DRG 389 ==
LOC: EDBD 21:43 → ER 21:47 → OVERFLOW 21:48 → WEST WING 04-13 11:42
PROVIDERS: ADMIT Internal Medicine Cardiovascular Disease; ATTEND Internal Medicine Cardiovascular Disease
DX: K56.699 Other intestinal obstruction unspecified as to partial versus complete obstruction (principal); N39.0 Urinary tract infection, site not specified; R64 Cachexia; I49.5 Sick sinus syndrome; J44.9 Chronic obstructive pulmonary disease, unspecified; K58.9 Irritable bowel syndrome, unspecified; Z79.899 Other long term (current) drug therapy; Z82.49 Family history of ischemic heart disease and other diseases of the circulatory system; Z83.3 Family history of diabetes mellitus; Z90.710 Acquired absence of both cervix and uterus; Z90.49 Acquired absence of other specified parts of digestive tract; Z83.49 Family history of other endocrine, nutritional and metabolic diseases; E11.22 Type 2 diabetes mellitus with diabetic chronic kidney disease; I12.9 Hypertensive chronic kidney disease with stage 1 through stage 4 chronic kidney disease, or unspecified chronic kidney disease; N18.9 Chronic kidney disease, unspecified
CPT/HCPCS: 36415; 70450; 71045; 74176; 80053; 81001; 84132; 84484; 85025; 93005; 96374; 96375; 96376; C9113; G0378; J2405

== ENCOUNTER → 2020-05-09 | Outpatient (CLI) | payer MEDICARE, MEDICAID ==
[~2020-05-09] MED LIST changes: -GABA300C10 PO; -MELA3TAB27 PO; -PANT40T PO
[2020-05-09 12:07] LABS: Basophils # (auto) 0 10 ^3/uL (0-0.2); Basophils % (auto) 0.6 % (0.0-2.0); Eosinophils # (auto) 0.2 10 ^3/uL (0-0.8); Hematocrit 39.1 % (36.0-46.0); Hemoglobin 13.1 g/dL (12.2-16.2); Lymphocytes % (auto) 22.3 % (10.0-50.0); Mean Corpuscular Hemoglobin 31.4 pg (28.0-32.0); Mean Corpuscular Hgb Conc. 33.5 g/dL (32.0-36.0); Mean Corpuscular Volume 93.8 fL (80.0-100.0); Monocytes # (auto) 0.4 10 ^3/uL (0-1.3); Monocytes % (auto) 9.2 % (0.0-12.0); Neutrophils # (auto) 2.8 10 ^3/uL (1.6-8.6); Neutrophils % (auto) 62.9 % (37.0-80.0); Platelet Count (auto) 186 10^3/uL (140-450); Red Blood Cells 4.17 10^6/uL (4.0-5.20); Red Cell Distribution Width 14.3 % (11.8-14.3); White Blood Cell 4.5 10^3/uL (4.4-10.8)
[2020-05-09 12:10] LABS: Urine Blood Negative /uL (Negative); Urine Specific Gravity 1.021 (1.001-1.035)
[2020-05-09 12:22] LABS: Potassium 4.5 mmol/L (3.5-5.1)
[2020-05-09 12:30] LABS: Free T4 (Free Thyroxine) 0.88 ng/dL (0.89-1.76)
[2020-05-09 12:31] LABS: Albumin 3.7 g/dL (3.4-5.0); BUN/Creatinine Ratio 18.2; Bilirubin, Total 0.3 mg/dL (0.2-1.0); Calcium 9.2 mg/dL (8.5-10.1); Total Protein 7.3 g/dL (6.4-8.2)
== END | disposition home or self-care (01) ==
LOC: LAB 08:20
PROVIDERS: ATTEND Internal Medicine Cardiovascular Disease
DX: E11.9 Type 2 diabetes mellitus without complications (principal); D51.3 Other dietary vitamin B12 deficiency anemia; I10 Essential (primary) hypertension; E55.9 Vitamin D deficiency, unspecified; D64.9 Anemia, unspecified; R00.2 Palpitations; R53.1 Weakness; R30.0 Dysuria
CPT/HCPCS: 36415; 80053; 80061; 81003; 82306; 82607; 83036; 84439; 84443; 85025; 87086; 87088; 87186

== ENCOUNTER 2020-10-13 20:52 | Inpatient (IN) | payer MEDICARE, MEDICAID ==
[~2020-10-13] VITALS: Ht 157.5 cm; Wt 78.1 kg
[~2020-10-13 20:52] MED LIST changes: -CITA-36 PO; +CITA40TA12 PO
[2020-10-13] MEDS ORDERED: SODIUM CHLORIDE 0.9% 1,000 ML IVB ONE (21:30)
[2020-10-13 22:11] LABS: Basophils # (auto) 0 10 ^3/uL (0-0.2); Basophils % (auto) 0.1 % (0.0-2.0); Eosinophils # (auto) 0.2 10 ^3/uL (0-0.8); Hematocrit 43.3 % (36.0-46.0); Hemoglobin 14.7 g/dL (12.2-16.2); Lymphocytes # (auto) 0.9 10 ^3/uL (0.4-5.4); Lymphocytes % (auto) 9.5 % (10.0-50.0); Mean Corpuscular Hemoglobin 31.3 pg (28.0-32.0); Mean Corpuscular Hgb Conc. 33.9 g/dL (32.0-36.0); Mean Corpuscular Volume 92.2 fL (80.0-100.0); Monocytes # (auto) 0.6 10 ^3/uL (0-1.3); Monocytes % (auto) 6.4 % (0.0-12.0); Neutrophils # (auto) 7.9 10 ^3/uL (1.6-8.6); Platelet Count (auto) 199 10^3/uL (140-450); White Blood Cell 9.6 10^3/uL (4.4-10.8)
[2020-10-13] MEDS ORDERED: MORPHINE SULF INJ 2 MG/ML SYRINGE 1ML IV ONE (22:15)
[2020-10-13] MEDS ORDERED: ONDANSETRON HCL 4 MG/2 ML VIAL IV ONE (22:15)
[2020-10-13] MEDS ORDERED: metroNIDAZOLE 500MG/100ML 100 ML IV ONE (22:15)
[2020-10-13] MEDS ORDERED: CIPROFLOXACIN 400MG/200ML 200 ML IV ONE (22:15)
[2020-10-13 22:29] LABS: Albumin 4.2 g/dL (3.4-5.0); Anion Gap 9 (5-15); Blood Urea Nitrogen 11 mg/dL (7-18); Calcium 9.7 mg/dL (8.5-10.1); Carbon Dioxide 24 mmol/L (21-32); Chloride 103 mmol/L (98-107); Glucose 121 mg/dL (74-106); Potassium 3.8 mmol/L (3.5-5.1); Sodium 136 mmol/L (136-145)
[2020-10-13 22:34] LABS: Alanine Aminotransferase 25 U/L (13-56); Alkaline Phosphatase 124 U/L (45-117); Aspartate Aminotransferase 15 U/L (15-37); BUN/Creatinine Ratio 9.5; Bilirubin, Total 0.4 mg/dL (0.2-1.0); GFR African American 60 mL/min; GFR Non-African American 49 mL/min; Total Protein 7.9 g/dL (6.4-8.2)
[2020-10-13 23:02] LABS: INR 1.06 (0.9-1.15); Partial Thromboplastin Time 23.4 sec (23.0-31.2)
[2020-10-13 23:05] LABS: Magnesium 2.6 mg/dL (1.6-2.6)
[2020-10-14] VITALS (7 sets, daily range): BP systolic 90–103; BP diastolic 45–89
[2020-10-14] MEDS ORDERED: MORPHINE SULF INJ 2 MG/ML SYRINGE 1ML IV PRN (01:15)
[2020-10-14] MEDS ORDERED: NITROGLYCERIN 0.4 MG SL TAB SL PRN (01:15)
[2020-10-14] MEDS: SODIUM CHLORIDE 0.9% 1,000 ML IV SCH ×2 (01:15→16:41)
[2020-10-14 01:44] LABS: Urine Bacteria FEW /hpf (None Seen); Urine Blood Negative /uL (Negative); Urine Hyaline Cast FEW /lpf (0 - 2); Urine Specific Gravity 1.005 (1.001-1.035); Urine WBC 1 /hpf (0 - 5)
[2020-10-14] MEDS: HYDROmorphone HCL 2 MG/ML VL IV PRN ×2 (04:47→16:18)
[2020-10-14] MEDS ORDERED: PANT40TA2 PO (05:12)
[2020-10-14] MEDS ORDERED: MONT10TA42 PO (05:12)
[2020-10-14] MEDS ORDERED: TRAM50TA2 PO (05:12)
[2020-10-14] MEDS: ALBUTEROL SULF 2.5 MG/0.5ML(0.5%) NEB SOLN NEB SCH ×4 (05:53→23:59)
[2020-10-14] MEDS: metroNIDAZOLE 500MG/100ML 100 ML IV SCH ×3 (06:06→17:35)
[2020-10-14] MEDS: PIPERACILLIN-TAZO 4.5GM 100 ML IV SCH ×3 (06:07→21:09)
[2020-10-14] MEDS: CITALOPRAM HYDROBR 20 MG TAB PO SCH (09:02)
[2020-10-14] MEDS ORDERED: LEVOTHYROXINE SODIUM 50 MCG TAB PO SCH (10:00)
[2020-10-14] MEDS ORDERED: AMITRIPTYLINE HCL 25 MG TAB ONE ×2 (21:45→21:52)
[2020-10-14] MEDS: AMITRIPTYLINE HCL 25 MG TAB PO SCH (21:52)
[2020-10-14] MEDS: LORazepam 0.5 MG TAB PO PRN (22:01)
[2020-10-15] MEDS: metroNIDAZOLE 500MG/100ML 100 ML IV SCH ×5 (00:11→23:35)
[2020-10-15] MEDS: SODIUM CHLORIDE 0.9% 1,000 ML IV SCH ×2 (03:26→17:15)
[2020-10-15] MEDS: ALBUTEROL SULF 2.5 MG/0.5ML(0.5%) NEB SOLN NEB SCH ×3 (04:37→18:42)
[2020-10-15 04:53] VITALS: BP 108/72
[2020-10-15] MEDS: PIPERACILLIN-TAZO 4.5GM 100 ML IV SCH ×3 (06:04→21:17)
[2020-10-15] MEDS: LEVOTHYROXINE SODIUM 50 MCG TAB PO SCH (06:05)
[2020-10-15 09:09] VITALS: BP 108/50
[2020-10-15] MEDS: CITALOPRAM HYDROBR 20 MG TAB PO SCH (09:11)
[2020-10-15] MEDS: HYDROmorphone HCL 2 MG/ML VL IV PRN (10:35)
[2020-10-15 13:00] VITALS: BP_SYST 110; BP_SYST 92; BP_DIAS 53; BP_DIAS 56
[2020-10-15 17:00] VITALS: BP 122/69
[2020-10-15] MEDS: LORazepam 0.5 MG TAB PO PRN (21:17)
[2020-10-15] MEDS: AMITRIPTYLINE HCL 25 MG TAB PO SCH (21:18)
[2020-10-15 22:00] VITALS: BP 122/61
[2020-10-16] MEDS: ALBUTEROL SULF 2.5 MG/0.5ML(0.5%) NEB SOLN NEB SCH ×4 (00:15→20:05)
[2020-10-16 05:00] VITALS: BP 112/55
[2020-10-16] MEDS: metroNIDAZOLE 500MG/100ML 100 ML IV SCH ×4 (05:04→22:49)
[2020-10-16] MEDS: HYDROmorphone HCL 2 MG/ML VL IV PRN ×2 (05:05→14:28)
[2020-10-16] MEDS: SODIUM CHLORIDE 0.9% 1,000 ML IV SCH ×2 (06:11→19:55)
[2020-10-16] MEDS: LEVOTHYROXINE SODIUM 50 MCG TAB PO SCH (06:14)
[2020-10-16] MEDS: PIPERACILLIN-TAZO 4.5GM 100 ML IV SCH ×3 (06:14→22:00)
[2020-10-16 09:00] VITALS: BP 103/55
[2020-10-16] MEDS: CITALOPRAM HYDROBR 20 MG TAB PO SCH (10:10)
[2020-10-16 13:00] VITALS: BP 108/78
[2020-10-16 17:00] VITALS: BP 118/51
[2020-10-16] MEDS: LORazepam 0.5 MG TAB PO PRN (22:52)
[2020-10-16] MEDS ORDERED: AMITRIPTYLINE HCL 25 MG TAB ONE ×2 (23:08→23:09)
[2020-10-16] MEDS: AMITRIPTYLINE HCL 25 MG TAB PO SCH (23:26)
[2020-10-17] MEDS: ALBUTEROL SULF 2.5 MG/0.5ML(0.5%) NEB SOLN NEB SCH ×4 (00:20→19:43)
[2020-10-17 05:00] VITALS: BP 108/49
[2020-10-17 05:27] VITALS: BP 108/49
[2020-10-17] MEDS: metroNIDAZOLE 500MG/100ML 100 ML IV SCH ×3 (06:32→18:31)
[2020-10-17] MEDS: LEVOTHYROXINE SODIUM 50 MCG TAB PO SCH (06:32)
[2020-10-17] MEDS: PIPERACILLIN-TAZO 4.5GM 100 ML IV SCH ×3 (06:45→22:02)
[2020-10-17 08:52] VITALS: BP 116/66
[2020-10-17] MEDS: SODIUM CHLORIDE 0.9% 1,000 ML IV SCH ×2 (09:15→22:35)
[2020-10-17] MEDS: HYDROmorphone HCL 2 MG/ML VL IV PRN ×2 (09:40→18:37)
[2020-10-17] MEDS: CITALOPRAM HYDROBR 20 MG TAB PO SCH (09:41)
[2020-10-17 12:35] VITALS: BP 110/60
[2020-10-17 17:16] VITALS: BP 121/74
[2020-10-17] MEDS ORDERED: ALBUTEROL SULF 2.5 MG/0.5ML(0.5%) NEB SOLN ONE (19:05)
[2020-10-17 21:39] VITALS: BP 89/51
[2020-10-17] MEDS: LORazepam 0.5 MG TAB PO PRN (22:02)
[2020-10-17] MEDS: AMITRIPTYLINE HCL 25 MG TAB PO SCH (22:15)
[2020-10-18] MEDS: metroNIDAZOLE 500MG/100ML 100 ML IV SCH ×3 (00:23→11:58)
[2020-10-18 05:30] VITALS: BP 106/62
[2020-10-18] MEDS: LEVOTHYROXINE SODIUM 50 MCG TAB PO SCH (06:29)
[2020-10-18] MEDS: PIPERACILLIN-TAZO 4.5GM 100 ML IV SCH ×2 (06:29→13:26)
[2020-10-18] MEDS ORDERED: ALBUTEROL SULF 2.5 MG/0.5ML(0.5%) NEB SOLN ONE ×2 (06:40→18:07)
[2020-10-18] MEDS: ALBUTEROL SULF 2.5 MG/0.5ML(0.5%) NEB SOLN NEB SCH ×3 (08:12→11:54)
[2020-10-18 09:00] VITALS: BP 115/75
[2020-10-18] MEDS: CITALOPRAM HYDROBR 20 MG TAB PO SCH (10:12)
[2020-10-18] MEDS: SODIUM CHLORIDE 0.9% 1,000 ML IV SCH (11:55)
[2020-10-18 13:00] VITALS: BP 129/61
[2020-10-18] MEDS: HYDROmorphone HCL 2 MG/ML VL IV PRN (13:38)
[2020-10-18 16:59] VITALS: BP 130/75
== END 2020-10-18 18:00 | disposition home or self-care (01) | DRG 389 ==
LOC: ER 20:52 → EDBD 20:52 → OVERFLOW 10-14 01:22 → CENTRAL 10-14 04:09
PROVIDERS: ADMIT Internal Medicine Cardiovascular Disease; ATTEND Internal Medicine Cardiovascular Disease
DX: K56.609 Unspecified intestinal obstruction, unspecified as to partial versus complete obstruction (principal); I50.30 Unspecified diastolic (congestive) heart failure; Z98.84 Bariatric surgery status; I49.5 Sick sinus syndrome; M19.90 Unspecified osteoarthritis, unspecified site; I11.0 Hypertensive heart disease with heart failure; Z20.822 Contact with and (suspected) exposure to COVID-19; E03.9 Hypothyroidism, unspecified; J44.9 Chronic obstructive pulmonary disease, unspecified; E11.9 Type 2 diabetes mellitus without complications; Z82.49 Family history of ischemic heart disease and other diseases of the circulatory system; Z80.3 Family history of malignant neoplasm of breast; Z83.3 Family history of diabetes mellitus; Z90.710 Acquired absence of both cervix and uterus; Z90.49 Acquired absence of other specified parts of digestive tract; K21.9 Gastro-esophageal reflux disease without esophagitis; J45.909 Unspecified asthma, uncomplicated
CPT/HCPCS: 36415; 70450; 71045; 74018; 74176; 80053; 81001; 83690; 83735; 84484; 85025; 85610; 85730; 87426; 93005; 94640; 96361; 96365; 96367; 96375; G0378; J2405; J2543; J3490

== ENCOUNTER → 2020-10-25 | Outpatient (CLI) | payer MEDICARE, MEDICAID ==
[~2020-10-25] VITALS: Ht 157.5 cm; Wt 71.7 kg
[~2020-10-25] MED LIST changes: +ADENOSINE 60 MG in GIVE UN-DILUTED 0 ML IV ONE; +ADENOSINE 90 MG/30 ML INJ IV ONE; +ALBUTEROL SULF 2.5 MG/0.5ML(0.5%) NEB SOLN ONE; +MONT10TA42 PO; +PANT40TA2 PO; +TRAM50TA2 PO
== END | disposition home or self-care (01) ==
LOC: Rad HDHVI 09:38
PROVIDERS: ATTEND Internal Medicine Cardiovascular Disease
DX: I49.9 Cardiac arrhythmia, unspecified (principal); E78.5 Hyperlipidemia, unspecified; J44.9 Chronic obstructive pulmonary disease, unspecified; I11.0 Hypertensive heart disease with heart failure; I50.30 Unspecified diastolic (congestive) heart failure; Z95.0 Presence of cardiac pacemaker; Z82.49 Family history of ischemic heart disease and other diseases of the circulatory system
CPT/HCPCS: 78452; 93005; 94640; 96374; 96375; A9500; J0153

== ENCOUNTER → 2021-10-23 | Outpatient (CLI) | payer OTHER ==
[~2021-10-23] MED LIST changes: -ADENOSINE 60 MG in GIVE UN-DILUTED 0 ML IV ONE; -ADENOSINE 90 MG/30 ML INJ IV ONE; -ALBUTEROL SULF 2.5 MG/0.5ML(0.5%) NEB SOLN ONE; +AMIT25TA12 PO; -AMIT25TA9 PO; +MONT-8 PO; -MONT10TA42 PO
== END | disposition home or self-care (01) ==
LOC: Rad HDHVI 13:09
PROVIDERS: ATTEND Internal Medicine Cardiovascular Disease
DX: I07.1 Rheumatic tricuspid insufficiency (principal); R06.02 Shortness of breath; R07.89 Other chest pain; Z95.0 Presence of cardiac pacemaker
CPT/HCPCS: 93306

== ENCOUNTER → 2021-11-01 | Outpatient (CLI) | payer OTHER ==
[~2021-11-01] VITALS: Ht 157.5 cm; Wt 71.7 kg
[~2021-11-01] MED LIST changes: +ADENOSINE 60 MG in GIVE UN-DILUTED 0 ML IV ONE; +ADENOSINE 90 MG/30 ML INJ IV ONE
== END | disposition home or self-care (01) ==
LOC: Rad HDHVI 13:52
PROVIDERS: ATTEND Internal Medicine Cardiovascular Disease
DX: E11.9 Type 2 diabetes mellitus without complications (principal); R42 Dizziness and giddiness; I49.5 Sick sinus syndrome; Z95.0 Presence of cardiac pacemaker
CPT/HCPCS: 78452; 93005; 96374; 96375; A9500; J0153

== ENCOUNTER 2022-07-03 18:13 | Emergency (ER) | payer OTHER ==
[~2022-07-03 18:13] MED LIST changes: -ADENOSINE 60 MG in GIVE UN-DILUTED 0 ML IV ONE; -ADENOSINE 90 MG/30 ML INJ IV ONE
== END 2022-07-03 18:38 | disposition left against medical advice (07) ==
LOC: EDBD 18:13 → ER 18:13
DX: R55 Syncope and collapse (principal); Z53.21 Procedure and treatment not carried out due to patient leaving prior to being seen by health care provider
CPT/HCPCS: 93005

== ENCOUNTER 2022-07-03 18:19 | Inpatient (IN) | payer MEDICARE, MEDICAID ==
[~2022-07-03] VITALS: Ht 157.5 cm; Wt 65.0 kg
[2022-07-03 21:41] LABS: Basophils # (auto) 0 10 ^3/uL (0-0.2); Basophils % (auto) 0.6 % (0.0-2.0); Eosinophils # (auto) 0.2 10 ^3/uL (0-0.8); Eosinophils % (auto) 3.8 % (0.0-7.0); Hematocrit 36.5 % (36.0-46.0); Hemoglobin 12.1 g/dL (12.2-16.2); Lymphocytes # (auto) 1.3 10 ^3/uL (0.4-5.4); Lymphocytes % (auto) 20.4 % (10.0-50.0); Mean Corpuscular Hemoglobin 28.3 pg (28.0-32.0); Mean Corpuscular Hgb Conc. 33.1 g/dL (32.0-36.0); Mean Corpuscular Volume 85.4 fL (80.0-100.0); Monocytes # (auto) 0.7 10 ^3/uL (0-1.3); Monocytes % (auto) 10.7 % (0.0-12.0); Neutrophils % (auto) 64.5 % (37.0-80.0); Nucleated Red Blood Cells % 0.1 %; Red Blood Cells 4.27 10^6/uL (4.0-5.20); Red Cell Distribution Width 17.3 % (11.8-14.3); White Blood Cell 6.1 10^3/uL (4.4-10.8)
[2022-07-03 21:59] LABS: Albumin 3.3 g/dL (3.4-5.0); Calcium 9.2 mg/dL (8.5-10.1)
[2022-07-03 22:10] LABS: Bilirubin, Total 0.5 mg/dL (0.2-1.0); Total Protein 6.4 g/dL (6.4-8.2)
[2022-07-04] MEDS ORDERED: AZITHROMYCIN 250 MG TAB PO ONE (01:30)
[2022-07-04] MEDS ORDERED: cefTRIAXone 1GM/50ML D5W 50 ML IV ONE (01:30)
[2022-07-04] MEDS ORDERED: TEMAZEPAM 15 MG CAP PO PRN (07:15)
[2022-07-04] MEDS ORDERED: HYDROcodone-ACET 5/325MG TAB PO PRN (07:15)
[2022-07-04] MEDS ORDERED: ALBUTEROL SULF 2.5 MG/0.5ML(0.5%) NEB SOLN NEB PRN (07:15)
[2022-07-04] MEDS ORDERED: SODIUM CHLORIDE 0.9% 1,000 ML IV SCH (07:15)
[2022-07-04] MEDS ORDERED: ONDANSETRON HCL 4 MG/2 ML VIAL IV PRN (07:15)
[2022-07-04] MEDS ORDERED: MORPHINE SULFATE INJ 2 MG/ml SYRG IV PRN (07:15)
[2022-07-04] MEDS ORDERED: ACETAMINOPHEN 325 MG TAB PO PRN (07:15)
[2022-07-04] MEDS ORDERED: MAALOX PLUS or MAALOX 30 ML PO PRN (07:15)
[2022-07-04] MEDS ORDERED: DOCUSATE SOD 100 MG CAP PO PRN (07:15)
[2022-07-04] MEDS ORDERED: LORazepam 0.5 MG TAB PO PRN (07:15)
[2022-07-04 08:07] LABS: Basophils # (auto) 0 10 ^3/uL (0-0.2); Basophils % (auto) 0.4 % (0.0-2.0); Eosinophils # (auto) 0.2 10 ^3/uL (0-0.8); Eosinophils % (auto) 2.8 % (0.0-7.0); Hematocrit 35.9 % (36.0-46.0); Hemoglobin 12.2 g/dL (12.2-16.2); Lymphocytes # (auto) 0.9 10 ^3/uL (0.4-5.4); Lymphocytes % (auto) 14.9 % (10.0-50.0); Mean Corpuscular Hemoglobin 28.7 pg (28.0-32.0); Mean Corpuscular Hgb Conc. 34.1 g/dL (32.0-36.0); Mean Corpuscular Volume 84.2 fL (80.0-100.0); Monocytes # (auto) 0.8 10 ^3/uL (0-1.3); Neutrophils # (auto) 4.4 10 ^3/uL (1.6-8.6); Neutrophils % (auto) 68.9 % (37.0-80.0); Nucleated Red Blood Cells % 0.1 %; Red Blood Cells 4.26 10^6/uL (4.0-5.20); White Blood Cell 6.4 10^3/uL (4.4-10.8)
[2022-07-04 08:18] LABS: Calcium 9.3 mg/dL (8.5-10.1)
[2022-07-04 08:20] LABS: BUN/Creatinine Ratio 16.3
[2022-07-04 08:40] LABS: Potassium 2.4 mmol/L (3.5-5.1)
[2022-07-04] MEDS ORDERED: cefTRIAXone 1GM/50ML D5W 50 ML IV SCH (10:00)
[2022-07-04] MEDS ORDERED: AZITHROMYCIN 500MG/ 250ML 250 ML IV SCH (10:00)
[2022-07-04 11:37] LABS: Urine Bacteria FEW /hpf (None Seen); Urine Blood Negative /uL (Negative); Urine Mucus FEW (None Seen); Urine WBC 11 /hpf (0 - 5)
[2022-07-04 14:21] VITALS: BP 126/68
== END 2022-07-04 16:25 | disposition home or self-care (01) | DRG 193 ==
LOC: ER 18:19 → EDUNIT# 18:19 → EDBD 18:19 → OVERFLOW 07-04 07:25
PROVIDERS: ADMIT Hospitalist; ATTEND Internal Medicine Cardiovascular Disease
DX: J18.9 Pneumonia, unspecified organism (principal); J96.90 Respiratory failure, unspecified, unspecified whether with hypoxia or hypercapnia; J44.0 Chronic obstructive pulmonary disease with (acute) lower respiratory infection; E11.22 Type 2 diabetes mellitus with diabetic chronic kidney disease; E86.9 Volume depletion, unspecified; E87.6 Hypokalemia; I48.91 Unspecified atrial fibrillation; I49.5 Sick sinus syndrome; K21.9 Gastro-esophageal reflux disease without esophagitis; I95.1 Orthostatic hypotension; X58.XXXA Exposure to other specified factors, initial encounter; N18.9 Chronic kidney disease, unspecified; S05.12XA Contusion of eyeball and orbital tissues, left eye, initial encounter; Z80.3 Family history of malignant neoplasm of breast; Z82.49 Family history of ischemic heart disease and other diseases of the circulatory system; Z83.3 Family history of diabetes mellitus; Z83.79 Family history of other diseases of the digestive system; Z90.710 Acquired absence of both cervix and uterus; Z98.84 Bariatric surgery status; Z90.49 Acquired absence of other specified parts of digestive tract; Y93.89 Activity, other specified; Y92.89 Other specified places as the place of occurrence of the external cause; Y99.8 Other external cause status
CPT/HCPCS: 36415; 70450; 70486; 71045; 80048; 80053; 81001; 84484; 85025; 87086; 96361; 96365; 96366; 96367; G0378; J0696

== ENCOUNTER → 2022-07-05 | Outpatient (CLI) | payer MEDICARE, MEDICAID ==
[~2022-07-05] MED LIST changes: +AZITHROMYCIN 500MG/ 250ML 250 ML IV ONE; +methylPREDNISolone SOD SUCC 125 MG/2 ML VL IV ONE; +methylPREDNISolone SOD SUCC 125 MG/2 ML VL ONE
[2022-07-05 15:11] VITALS: BP 127/81
[2022-07-05 17:42] VITALS: BP 134/77
== END | disposition home or self-care (01) ==
LOC: CHF HDHVI 15:11
PROVIDERS: ATTEND Internal Medicine Cardiovascular Disease
DX: N39.0 Urinary tract infection, site not specified (principal); J06.9 Acute upper respiratory infection, unspecified; E11.22 Type 2 diabetes mellitus with diabetic chronic kidney disease; N18.9 Chronic kidney disease, unspecified; J44.9 Chronic obstructive pulmonary disease, unspecified; K21.9 Gastro-esophageal reflux disease without esophagitis; I48.91 Unspecified atrial fibrillation; Z90.710 Acquired absence of both cervix and uterus; Z98.84 Bariatric surgery status; Z90.49 Acquired absence of other specified parts of digestive tract
CPT/HCPCS: 94640; 96365; 96366; 96375; G0463; J0456; J2930

== ENCOUNTER → 2022-07-23 | Outpatient (CLI) | payer MEDICARE, MEDICAID ==
[~2022-07-23] MED LIST changes: -AZITHROMYCIN 500MG/ 250ML 250 ML IV ONE; -methylPREDNISolone SOD SUCC 125 MG/2 ML VL IV ONE; -methylPREDNISolone SOD SUCC 125 MG/2 ML VL ONE
[2022-07-23 15:49] LABS: BUN/Creatinine Ratio 16.8; Calcium 9.7 mg/dL (8.5-10.1); Potassium 3.9 mmol/L (3.5-5.1)
== END | disposition home or self-care (01) ==
LOC: LAB 10:22
PROVIDERS: ATTEND Internal Medicine Cardiovascular Disease
DX: I10 Essential (primary) hypertension (principal)
CPT/HCPCS: 36415; 80048

== ENCOUNTER → 2022-08-20 | Outpatient (CLI) | payer MEDICARE, MEDICAID | END | disposition home or self-care (01) | LOC: Rad HDHVI 15:50 | PROVIDERS: ATTEND Internal Medicine Cardiovascular Disease | DX: G93.89 Other specified disorders of brain (principal); I63.9 Cerebral infarction, unspecified; R07.81 Pleurodynia | CPT/HCPCS: 70450; 71111 ==

== ENCOUNTER → 2022-10-23 | Outpatient (CLI) | payer MEDICARE, MEDICAID | END | disposition home or self-care (01) | LOC: Rad HDHVI 16:00 | PROVIDERS: ATTEND Internal Medicine Cardiovascular Disease | DX: I07.1 Rheumatic tricuspid insufficiency (principal); R07.89 Other chest pain; I10 Essential (primary) hypertension; Z95.0 Presence of cardiac pacemaker | CPT/HCPCS: 93306 ==

== ENCOUNTER → 2023-05-14 | Outpatient (CLI) | payer MEDICARE, MEDICAID ==
[~2023-05-14] MED LIST changes: -ACET-1156 PO; +ACET-1881 PO; -AMIT25TA12 PO; +AMIT25TA20 PO; +LORA-1105 PO; -LORA2TAB12 PO
== END | disposition home or self-care (01) ==
LOC: Rad HDHVI 15:54
PROVIDERS: ATTEND Internal Medicine Cardiovascular Disease
DX: I07.1 Rheumatic tricuspid insufficiency (principal); R06.02 Shortness of breath; Z95.0 Presence of cardiac pacemaker
CPT/HCPCS: 93306

== ENCOUNTER → 2024-05-19 | Outpatient (CLI) | payer MEDICARE, MEDICAID ==
[~2024-05-19] VITALS: Ht 157.5 cm; Wt 70.3 kg
[~2024-05-19] MED LIST changes: +ADENOSINE 59 MG in GIVE UN-DILUTED 0 ML IV ONE; +ADENOSINE 90 MG/30 ML INJ IV ONE
== END | disposition home or self-care (01) ==
LOC: Rad HDHVI 07:54
PROVIDERS: ATTEND Internal Medicine Cardiovascular Disease
DX: Z01.810 Encounter for preprocedural cardiovascular examination (principal); I49.3 Ventricular premature depolarization; I11.0 Hypertensive heart disease with heart failure; I25.10 Atherosclerotic heart disease of native coronary artery without angina pectoris; I49.5 Sick sinus syndrome; I50.33 Acute on chronic diastolic (congestive) heart failure; R06.02 Shortness of breath; I25.2 Old myocardial infarction; E78.00 Pure hypercholesterolemia, unspecified; Z82.49 Family history of ischemic heart disease and other diseases of the circulatory system
CPT/HCPCS: 78452; 93005; 96374; 96375; A9500; J0153

== ENCOUNTER → 2024-06-02 | Outpatient (CLI) | payer MEDICARE, MEDICAID ==
[~2024-06-02] MED LIST changes: -ADENOSINE 59 MG in GIVE UN-DILUTED 0 ML IV ONE; -ADENOSINE 90 MG/30 ML INJ IV ONE
--- NOTE | 2024-06-03 12:24 | DVHSR ---
APPROVED REPORT EXAM: Two-dimensional and M-mode echocardiogram with Doppler and color Doppler. Surgery/Intervention Pacemaker: DIMENSIONS LVDd4.1 (3.8-5.7cm)LA (2D)3.1 (1.9-4.0cm)Aortic Root3.2 (2.0-3.7cm) LVDs2.8 (2.5-4.0cm)LA (MM) (1.9-4.0cm)Aortic Cusp Exc1.7 (1.5-2.0cm) EF (%) 60.0 (55-70%)Rt. Atrium3.3 (1.9-4.0cm)Asc. Aorta cm IVSd1.0 (0.7-1.1cm)RV (D) (1.8-2.4cm) PWd1.1 (0.7-1.1cm) Mitral Valve MitralMitral Stenosis E wave0.52m/sMV Mean GR.mmHg A wave0.76m/sMV Peak GR.mmHg E/A ratio0.72D MVAcm2 DECEL [id number] 1/2 Timems Aortic Valve Aortic ValveAortic Stenosis V10.90m/Renetta Mean GR.3mmHg V21.17m/Renetta Peak GR.5mmHg LVOT Diameter1.9 (1.8-2.4cm)Doppler AVA2.18cm2 Tricuspid Valve TR Velocity2.50m/s [id number] LEFT VENTRICLE The left ventricle is normal size. The left ventricle is normal in structure and function. The Ejection Fraction is within normal limits. RIGHT VENTRICLE The right ventricle is normal size. ATRIA The left atrial size is normal. The right atrium size is normal. The interatrial septum is intact with no evidence for an atrial septal defect. MITRAL VALVE The mitral valve is normal in structure. There is no mitral valve regurgitation noted. PULMONIC VALVE The pulmonic valve is not well visualized. TRICUSPID VALVE The tricuspid valve is grossly normal. There is mild tricuspid regurgitation. Right ventricular systolic pressure is less than 30 mmHg. AORTIC VALVE The aortic valve opens well. No aortic regurgitation is present. GREAT VESSELS The aortic root is normal size. PERICARDIAL EFFUSION There is no pericardial effusion. Other Information Quality : LimitedRhythm : Technically limited study due to body habitus. Conclusion EF >55% MILD TR
== END | disposition home or self-care (01) ==
LOC: Rad HDHVI 14:59
PROVIDERS: ATTEND Internal Medicine Cardiovascular Disease
DX: I07.1 Rheumatic tricuspid insufficiency (principal); I10 Essential (primary) hypertension; Z95.0 Presence of cardiac pacemaker
CPT/HCPCS: 93306

== ENCOUNTER 2024-07-12 07:59 | Day surgery (SDC) | payer MEDICARE, MEDICAID ==
[2024-07-05 11:10] LABS: Urine Bacteria None Seen /hpf (None Seen); Urine WBC None Seen /hpf (0 - 5)
[2024-07-05 11:34] LABS: Basophils # (auto) 0 10 ^3/uL (0-0.2); Basophils % (auto) 0.8 % (0.0-2.0); Eosinophils # (auto) 0.2 10 ^3/uL (0-0.8); Eosinophils % (auto) 4.6 % (0.0-7.0); Hemoglobin 11.7 g/dL (12.2-16.2); Lymphocytes # (auto) 1.2 10 ^3/uL (0.4-5.4); Lymphocytes % (auto) 29.6 % (10.0-50.0); Mean Corpuscular Hemoglobin 27.5 pg (28.0-32.0); Mean Corpuscular Hgb Conc. 32.5 g/dL (32.0-36.0); Mean Corpuscular Volume 84.7 fL (80.0-100.0); Monocytes # (auto) 0.3 10 ^3/uL (0-1.3); Monocytes % (auto) 7.8 % (0.0-12.0); Neutrophils # (auto) 2.4 10 ^3/uL (1.6-8.6); Neutrophils % (auto) 57.2 % (37.0-80.0); Platelet Count (auto) 203 10^3/uL (140-450); Red Blood Cells 4.25 10^6/uL (4.0-5.20); Red Cell Distribution Width 18.1 % (11.8-14.3); White Blood Cell 4.1 10^3/uL (4.4-10.8)
[2024-07-05 11:54] LABS: INR 1.03 (0.9-1.15); Partial Thromboplastin Time 23.4 SEC (24.5-34.5); Prothrombin Time 10.9 sec (9.3-11.8)
[2024-07-05 12:51] LABS: Urine Amorphous Crystal FEW /hpf (None Seen); Urine Blood Negative /uL (Negative); Urine Clarity Ex.Turbid (Clear); Urine Color Light-Yellow (Yellow); Urine Mucus FEW (None Seen); Urine Protein, UAD Negative (Negative); Urine Squamous Epithelial Cell FEW /hpf (<5); Urine Urobilinogen Normal (Negative); Urine pH 5.5 (5.0-9.0)
[2024-07-05 13:42] LABS: Alanine Aminotransferase 22 U/L (7-40); Alkaline Phosphatase 103 U/L (46-116); Carbon Dioxide 27 mmol/L (20-31)
[2024-07-05 13:43] LABS: Anion Gap 8 (5-15); Blood Urea Nitrogen 17 mg/dL (9-23); Glucose 94 mg/dL (74-106); Potassium 4.8 mmol/L (3.5-5.1); Sodium 144 mmol/L (136-145)
[2024-07-05 13:44] LABS: Albumin 4.4 g/dL (3.2-4.8); Aspartate Aminotransferase 23 U/L (13-40); Total Protein 6.8 g/dL (5.7-8.2)
[2024-07-05 13:46] LABS: Bilirubin, Total 0.3 mg/dL (0.2-1.0); Chloride 109 mmol/L (98-107)
[~2024-07-12] VITALS: Ht 157.5 cm; Wt 69.9 kg
[2024-07-12] MEDS ORDERED: SUCCINYLCHOLINE CHLORIDE 20 MG/ML 10ML VIAL IV ONE (08:00)
[2024-07-12] MEDS ORDERED: ceFAZolin 2 GM/D5W100ml 100 ML IV ONE (10:47)
[2024-07-12] MEDS ORDERED: BUPIVACAINE W/ EPINEPH 0.5% MPF 30ML VIAL IJ ONE (11:02)
[2024-07-12] MEDS ORDERED: MEPERIDINE HCL (25 MG/ML) 1ML VIAL ONE (11:40)
[2024-07-12] MEDS ORDERED: MIDAZOLAM HCL 2MG/2ML 2ml VIAL (1mg/ml) ONE (11:41)
[2024-07-12] MEDS ORDERED: fentaNYL CITRATE 100 MCG/2 ML VL ONE (11:41)
[2024-07-12] MEDS ORDERED: DexAMETHasone SOD PHOS 10MG/1ML VIAL INJ ONE (12:09)
[2024-07-12] MEDS ORDERED: ETOMIDATE (2MG/ML) 20ML VIAL IV ONE (12:09)
--- NOTE | 2024-07-12 12:15 | DVHOP ---
DATE OF SURGERY: 07/12/2024 PREOPERATIVE DIAGNOSIS: Mass, left neck. POSTOPERATIVE DIAGNOSIS: Inclusion cyst, left neck. SURGEON: Warren Trivedi MD AQUA AMMONIA OPERATOR: Hardy Salinas NP ANESTHESIA: General endotracheal, Dr. Anthony. PROCEDURE: Excision of mass, left neck. DESCRIPTION OF PROCEDURE: Under adequate anesthesia with the patient's skin prepped and draped, an incision was made over the visible palpable large mass of the left neck. This was excised by subcutaneous dissection including skin with a punctum in its entirety and subsequently wound was irrigated. Approximation accomplished using Monocryl sutures, Dermabond glue, and Steri-Strips. The patient remained stable throughout the procedure and left the operating room following an accurate needle and sponge count. Daughter was thoroughly informed in the waiting room. MD YOVANY Rose/CHANDAN TID: [id number] RECEIPT: [id number]
[2024-07-12 12:30] VITALS: PULSE 84; RESP 13; O2SAT 93
[2024-07-12] MEDS ORDERED: ePHEDrine SULFATE 50 MG/ML AMP IV PRN (12:45)
[2024-07-12] MEDS ORDERED: MIDAZOLAM HCL 2MG/2ML 2ml VIAL (1mg/ml) IV PRN (12:45)
[2024-07-12] MEDS ORDERED: MORPHINE SULFATE 4 MG/ML SYR/VIAL IV PRN (12:45)
[2024-07-12] MEDS ORDERED: HYDROmorphone HCL 2 MG/ML VL/or syr IV PRN (12:45)
[2024-07-12] MEDS ORDERED: hydrALAZINE HCL 20 MG/ML VL IV PRN (12:45)
[2024-07-12] MEDS ORDERED: ONDANSETRON HCL 4 MG/2 ML VIAL IV ONE (12:45)
[2024-07-12 12:48] VITALS: PULSE 79; RESP 21; O2SAT 96
[2024-07-12] MEDS: ALBUTEROL SULF 2.5 MG/0.5ML(0.5%) NEB SOLN ONE (12:48)
[2024-07-12] MEDS: ALBUTEROL SULF 2.5 MG/0.5ML(0.5%) NEB SOLN NEB ONE (12:48)
[2024-07-12] MEDS: IPRATROPIUM BROM 0.5 MG/2.5ML INH SOL ONE (12:48)
[2024-07-12] MEDS: IPRATROPIUM BROM 0.5 MG/2.5ML INH SOL NEB ONE (12:48)
[2024-07-12 12:53] VITALS: PULSE 67; RESP 13; O2SAT 100
[2024-07-12 13:15] VITALS: BP 121/62; PULSE 66; RESP 11; O2SAT 99
== END 2024-07-12 13:30 | disposition home or self-care (01) ==
LOC: SUR 07:59
PROVIDERS: ATTEND Surgery
DX: L72.0 Epidermal cyst (principal); R22.1 Localized swelling, mass and lump, neck; J45.909 Unspecified asthma, uncomplicated; I25.2 Old myocardial infarction; K21.9 Gastro-esophageal reflux disease without esophagitis; M79.7 Fibromyalgia; E11.9 Type 2 diabetes mellitus without complications; I10 Essential (primary) hypertension; E03.9 Hypothyroidism, unspecified; Z79.890 Hormone replacement therapy; Z79.84 Long term (current) use of oral hypoglycemic drugs; Z90.49 Acquired absence of other specified parts of digestive tract; Z98.84 Bariatric surgery status; Z79.899 Other long term (current) drug therapy; Z79.01 Long term (current) use of anticoagulants
CPT/HCPCS: 11423; 36415; 80053; 81001; 85025; 85610; 85730; 86850; 86900; 86901; 88305; 94640; J0330; J1100; J2175; J2250; J2371; J3010

== ENCOUNTER 2024-10-25 14:35 | Emergency (ER) | payer MEDICARE, MEDICAID ==
[~2024-10-25] VITALS: Ht 157.5 cm; Wt 67.0 kg
[2024-10-25 14:40] VITALS: TEMP 98.3
--- NOTE | 2024-10-25 16:33 | DVH ---
EXAM: CT HEAD WITHOUT CONTRAST INDICATION: fall TECHNIQUE: CT of the head without intravenous contrast. Radiation Dose : 1. Head: CT Dose: CTDI volume is 49 mGy. Dose-length product is 790 mGy*cm The dose indicators for CT are the volume Computed Tomography (CT) Dose Index (CTDIvol) and the Dose Length Product (DLP), and are measured in units of mGy and mGy-cm, respectively. These indicators are not patient dose, but values generated from the CT scanner acquisition factors. The report includes radiation exposure data for exposures received during this examination. COMPARISON: HEAD WITHOUT CONTRAST on DOS: 08/20/22, HEAD WITHOUT CONTRAST on DOS: 07/03/22 FINDINGS: There is no evidence of acute intracranial hemorrhage, extra-axial collection, mass effect, midline s hift, herniation or hydrocephalus. The ventricles, sulci and cisterns are age appropriate. The bradley-white differentiation is intact. Patchy periventricular and subcortical white matter hypoattenuation is nonspecific but may be related to small vessel ischemic disease. The visualized paranasal sinuses and mastoid air cells are clear. The surrounding soft tissues and osseous structures are unremarkable. IMPRESSION: 1. No acute intracranial abnormality. Radiation optimization: All CT scans at this facility use at least one of these dose optimization red hniques: automated exposure control mA and/or kV adjustment per patient size (includes targeted exam s where dose is matched to clinical indication) or iterative reconstruction.
--- NOTE | 2024-10-25 16:40 | DVH ---
CT cervical spine INDICATION: fall Technique: Serial axial images were performed through spine and then reformatted in sagital and dony nal planes. FINDINGS: Cervical vertebral bodies are normal in height and alignment. There is disc space narrowing at C4-5 C5-6 and C6-7 Transaxial images slight foraminal narrowing is present at C5-6 and C6-7 due to osteophytes. IMPRESSION: 1. No acute bony trauma. Degenerative changes lower cervical spine Computed Tomographic Radiation Dosimetry Report: Total CTDI vol = 15 mGy Total DLP = 1003 mGy-cm All CT scans at this medical facility are performed using dose modulation techniques as appropriate t o a performed exam including the following: Automated exposure control was utilized; adjustment of the MA and/or KvP according to patient size; a nd use of iterative reconstruction technique.
--- NOTE | 2024-10-25 16:49 | DVH ---
EXAM: CT CHST AB PEL WO CON-NO IV/ORAL HISTORY: fall COMPARISON: None TECHNIQUE: Helical CT images of the chest, abdomen, and pelvis were performed without IV contrast. Sa gittal and coronal reformatted images were obtained. This CT exam was performed using one or more of the following dose reduction techniques: Automated exposure control, adjustment of the mA and/or kv a ccording to patient size, or the use of iterative reconstruction techniques. Radiation Dose Information: CT Dose: CTDI volume is 50.99 mGy. Dose-length product is 2395.03 mGy*cm FINDINGS: CT chest: No hemothorax. No pneumothorax. Small rounded ground-glass 1 cm density right upper lobe. Bibasilar atelectasis Heart size is enlarged. Pacer leads in the heart. No pericardial effusion. Small retro cardiac hiatal hernia Mild compression fracture at T6 and T11. CT abdomen: Surgical clips at the GE junction. The noncontrast liver, spleen, pancreas, kidneys, and adrenal glands are unremarkable. Gallbladder has been removed. No abdominal aortic aneurysm. CT pelvis: No abnormal bowel dilatation, free air, or free fluid. The appendix and urinary bladder ar e unremarkable. No fractures are identified about the lumbar spine, pelvis, or hips. IMPRESSION: 1. No acute soft tissue injury to the chest abdomen or pelvis. Study limited by lack of IV contrast 2. Mild compression fractures at T6 and T11 age uncertain 3. Cardiomegaly with small retrocardiac hiatal hernia
--- NOTE | 2024-10-25 18:07 | ED.PDOC ---
History of Present Illness HPI Comments 74-year-old female complaining of head pain and left-sided pain. In back pain. Patient states she had a fall today. She got dizzy while using a walker and found to the left side states she did hit her head but did not lose consciousness. Says she deals with dizzy spells and falling frequently. This has been going on for the last 3-4 years. Her primary care doctor in [place] [facility] are aware. States he was no known cause for the dizziness at this point. Chief Complaint: Fall Injury Time Seen by MD: 15:22 Primary Care Provider: Matthieu Reviewed Notes: Nurses Notes Allergies: Coded Allergies: NO KNOWN ALLERGIES (Unverified , 08/10/17) Home Meds Reported Medications Montelukast Sodium (MONTELUKAST SODIUM) 10 Mg Tab, 10 TAB PO DAILY, #30 TAB 5 Refills 10/14/20 Tramadol Hcl (Tramadol Hcl) 50 Mg Tab, 50 MG PO Q6HP PRN for PAIN SCALE 1 THRU 6, MG 10/14/20 Pantoprazole Sodium Sesquihydr (Protonix) 40 Mg Tab, 40 MG PO DAILY, #30 TAB 10/14/20 Acetaminophen (Acetaminophen) 325 Mg Tab, 500 MG PO Q4HP PRN for MILD PAIN (1-3 PAIN SCALE) for 30 Days, MG 0 Refills 05/29/19 Albuterol Sulfate (VENTOLIN MDI) 90 Mcg Ih, 90 MCG IN Q6HP PRN for SHORTNESS OF BREATH for 30 Days, MCG 05/29/19 Amitriptyline Hcl (Amitriptyline Hcl) 25 Mg Tab, 150 MG PO HS for 30 Days, MG 05/29/19 Cholecalciferol (VITAMIN D3) 2,000 Unit Tab, 5000 UNIT OR DAILY, TAB 05/29/19 Levothyroxine Sodium (Levothyroxine Sodium) 50 Mcg Tab, 100 MCG PO DAILY, TAB 12/30/16 Citalopram Hydrobromide (Celexa) 40 Mg Tab, 40 MG PO DAILY, TAB 12/30/16 Lorazepam (Lorazepam) 2 Mg Tab, 1 TAB PO DAILY PRN for ANXIETY, #30 TAB 12/30/16 Probiotic Product (PROBIOTIC) Tab, 1 CAP OR DAILY, TAB 02/18/16 Information Source: Patient Mode of Arrival: EMS Past Medical History PAST MEDICAL HISTORY: Asthma, CKF, COPD, DM, GERD, High Lipids, Thyroid Surgical History: Cholecystectomy, Hysterectomy, Pacemaker, Tonsillectomy ELECTRIC SIGN ASSEMBLER History: No Pertinent ELECTRIC SIGN ASSEMBLER History Family History Family History: Unobtainable Social History Smoker: Non-Smoker Alcohol: Rarely Drugs: Denies Drug Use Lives In: Home Constitutional: denies: chills, diaphoresis, fatigue, fever, malaise, sweats, weakness, others EENTM: denies: blurred vision, double vision, ear bleeding, ear discharge, ear drainage, ear pain, ear ringing, eye pain, eye redness, hearing loss, mouth pain, mouth swelling, nasal discharge, nose bleeding, nose congestion, nose pain, photophobia, tearing, throat pain, throat swelling, voice changes, others Respiratory: denies: cough, hemoptysis, orthopnea, SOB at rest, shortness of breath, SOB with excertion, stridor, wheezing, others Cardiovascular: denies: chest pain, dizzy spells, diaphoresis, Dyspnea on exertion, edema, irregular heart beat, left arm pain, lightheadedness, palpitations, PND, syncope, others Gastrointestinal: denies: abdomen distended, abdominal pain, blood streaked bowels, constipated, diarrhea, dysphagia, difficulty swallowing, hematemesis, melena, nausea, poor appetite, poor fluid intake, rectal bleeding, rectal pain, vomiting, others Genitourinary: denies: abnormal vagina bleeding, burning, dyspareunia, dysuria, flank pain, frequency, hematuria, incontinence, pain, , vagina discharge, urgency, others Neurological: denies: dizziness, fainting, headache, left sided numbness, left sided weakness, numbness, paresthesia, pre-existing deficit, right sided numbness, right sided weakness, seizure, speech problems, tingling, tremors, weakness, others Musculoskeletal: reports: back pain, muscle pain, muscle stiffness Integumetry: denies: bruises, change in color, change in hair/nails, dryness, laceration, lesions, lumps, rash, wounds, others Allergic/Immunocompromised: denies: Difficulty Healing, Frequent Infections, Hives, Itching, others Hematologic/Lymphatic: denies: anemia, blood clots, easy bleeding, easy bruising, swollen glands, others Physical Exam General Appearance: No Apparent Distress, Normal HEENT: Normal ENT Inspection, Pharynx Normal, TMs Normal Neck: Full Range of Motion, Non-Tender, Normal, Normal Inspection Respiratory: Chest Non-Tender, Lungs Clear, No Accessory Muscle Use, No Respiratory Distress, Normal Breath Sounds Cardiovascular: No Edema, No JVD, No Murmur, No Gallop, Normal Peripheral Pulses, Regular Rate/Rhythm Breast Exam: Deferred Gastrointestinal: No Organomegaly, Non Tender, No Pulsatile Mass, Normal Bowel Sounds, Soft Genitalia: Deferred Pelvic: Deferred Rectal: Deferred Extremities: No calf tenderness, Normal capillary refill, Normal inspection, Normal range of motion, Non-tender, No pedal edema Musculoskeletal : Apperance: Normal Neurologic: Alert, hazardous materials analyst II-XII nml as Tested, No Motor Deficits, Normal Affect, Normal Mood, No Sensory Deficits Cerebellar Function: Normal Reflexes: Normal Skin: Dry, Normal Color, Warm Lymphatic: No Adenopathy Was a procedure done? Was a procedure done?: No Differential Dx Considerations may include: Fracture, dislocation, hypotension, CAD. X-Ray, Labs, Meds, VS Vital Signs Date Time Temp Pulse Resp B/P (MAP) Pulse Ox O2 Delivery O2 Flow Rate FiO2 10/25/24 14:53 74 10/25/24 14:40 98.3 85 16 83/56 (65) 98 98.3 X-Ray, Labs, Meds, VS Comment Imaging: X-rays and CT scans were reviewed and interpreted by this provider, imaging shows no fractures and no pathological disease. Pending radiology review. Laboratory: Labs reviewed and interpreted by this provider. No significant abnormalities noted. Patient has prior medical visits reviewed. Med reconciliation performed Vital signs reviewed Time of 1ST Reevaluation: 18:29 Reevaluation 1ST: Improved Patient Education/Counseling: Diagnosis, Treatment, Need For Follow Up (Follow up in the emergency department in the next 24-48 hours if symptoms worsen. It was advised to follow up with your primary care doctor in the next 3-4 days for further evaluation.) Family Education/Counseling: Diagnosis Departure 1 Departure Time of Disposition: 18:07 Impression: Primary Impression: Syncope and collapse Disposition: HOME / SELF CARE / HOMELESS Condition: Fair Discharged With: Self Critical Care Note Critical Care Time?: No Stability Stability form required: No Heart Score Heart Score: Heart Score Response (Comments) Value History N/A 0 EKG N/A 0 Age N/A 0 Risk Factors N/A 0 Troponin N/A 0 Total 0 HANNAH GRECOP Oct 25, 2024 18:07
[2024-10-25 18:25] VITALS: BP 116/75; PULSE 83; RESP 17; O2SAT 99
[2024-10-25] MEDS: methylPREDNISolone SOD SUCC 125 MG/2 ML VL IM ONE (21:02)
[2024-10-25] MEDS: KETOROLAC TROMETH 30 MG/ML 1ML VIAL IM ONE (21:02)
--- NOTE | 2024-10-26 05:02 | ECG ---
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
== END 2024-10-25 21:00 | disposition home or self-care (01) ==
LOC: EDBD 14:35 → EDUNIT# 14:35 → ER 14:42
DX: R55 Syncope and collapse (principal); R51.9 Headache, unspecified; M54.9 Dorsalgia, unspecified; E11.9 Type 2 diabetes mellitus without complications; I50.9 Heart failure, unspecified; E78.5 Hyperlipidemia, unspecified; E03.9 Hypothyroidism, unspecified; K21.9 Gastro-esophageal reflux disease without esophagitis; J45.909 Unspecified asthma, uncomplicated; Z79.899 Other long term (current) drug therapy; Z90.49 Acquired absence of other specified parts of digestive tract; Z90.710 Acquired absence of both cervix and uterus; Z95.0 Presence of cardiac pacemaker
CPT/HCPCS: 70450; 71250; 72125; 74176; 93005

== ENCOUNTER → 2024-11-02 | Outpatient (CLI) | payer MEDICARE, MEDICAID ==
--- NOTE | 2024-11-02 14:26 | DVH ---
EXAMINATION: XY R RIB XRAY INDICATION: POST FALL COMPARISON: RIBBI on DOS: 08/20/22 TECHNIQUE: Frontal view of the chest and 3 views of the right ribs history FINDINGS: No focal consolidation, pleural effusion or significant pneumothorax. Normal cardiomediastinal silhou ette. No displaced right rib fracture. IMPRESSION: No acute cardiopulmonary disease. No displaced right rib fracture.
--- NOTE | 2024-11-02 15:42 | DVH ---
EXAM: CT HEAD WITHOUT CONTRAST HISTORY: POST FALL COMPARISON: CT HEAD WITHOUT CONTRAST on DOS: 10/25/24, HEAD WITHOUT CONTRAST on DOS: 08/20/22, HEAD WIT HOUT CONTRAST on DOS: 07/03/22 TECHNIQUE: Noncontrast axial CT images of the head were performed. Sagittal and coronal reformatted i mages were obtained. This CT exam was performed using 1 or more of the following dose reduction techn iques: Automated exposure control, adjustment of the mA and/or kv according to patient size, or the u se of iterative reconstruction techniques. Radiation Dose: CTDI volume is 50.86 mGy. Dose-length product is 954.75 mGy*cm FINDINGS: There is global brain atrophy. There is mild decreased attenuation in the periventricular white matte r. No intracranial hemorrhage, mass, midline shift, hydrocephalus, or evidence of acute large vessel infarct. The partially-visualized paranasal sinuses are clear. The bilateral mastoid air cells and mi ddle ear spaces are clear. No cranial fracture or scalp edema. IMPRESSION: Global brain atrophy and chronic ischemic changes without evidence of acute intracranial process.
== END | disposition home or self-care (01) ==
LOC: Rad HDHVI 12:36
PROVIDERS: ATTEND Internal Medicine Cardiovascular Disease
DX: I67.82 Cerebral ischemia (principal); G31.89 Other specified degenerative diseases of nervous system
CPT/HCPCS: 70450; 71100

== ENCOUNTER → 2024-11-03 | Outpatient (CLI) | payer MEDICARE, MEDICAID | END | disposition home or self-care (01) | LOC: Rad HDHVI 15:11 | PROVIDERS: ATTEND Internal Medicine Cardiovascular Disease | DX: I10 Essential (primary) hypertension (principal) | CPT/HCPCS: 93880 ==

== ENCOUNTER 2025-01-19 14:47 | Outpatient (CLI) | payer MEDICARE, MEDICAID ==
[2025-01-19 15:00] VITALS: BP 119/75; PULSE 71; RESP 18; O2SAT 91
[2025-01-19 15:27] VITALS: BP 127/76; PULSE 70; RESP 18; O2SAT 91
--- NOTE | 2025-01-19 16:10 | DVH ---
CLINICAL INDICATION: POST FALL TECHNIQUE: 3 radiographic views of the right ankle were obtained. Comparison: None FINDINGS/IMPRESSION: There is no evidence of acute fracture or dislocation. The visualized joint space is well maintained. Small posterior and plantar calcaneal bone spur. The alignment is anatomical. There is no radiopaque foreign body. Mild ankle soft tissue edema.
--- NOTE | 2025-01-19 16:12 | DVH ---
Exam: CT HEAD WITHOUT CONTRAST History: ALOC Technique: [address] images through the posterior fossa and the supratentorial compart ment were acquired without contrast and imaged using soft tissue and bone algorithms. RADIATION DOSE: DLP 824.52 mGy.cm; CTDI vol 51.53 mGy. Comparison: CT HEAD WITHOUT CONTRAST on DOS: 11/02/24, CT HEAD WITHOUT CONTRAST on DOS: 10/25/24, HEAD W ITHOUT CONTRAST on DOS: 08/20/22 Findings: There is no evidence of an intracranial hemorrhage, acute large vessel infarct, mass effect, or midli ne shift. There is moderate cerebral atrophy. Chronic small-vessel ischemic disease. No significant calcification of the carotid siphons. The calvarium, orbits, paranasal sinuses, sella, middle ears, and mastoids are unremarkable. The superficial soft tissues are within normal limits. Impression: 1. No acute intracranial abnormality.
== END 2025-01-19 17:00 | disposition home or self-care (01) ==
LOC: Rad HDHVI 14:47
PROVIDERS: ATTEND Internal Medicine Cardiovascular Disease
DX: I67.82 Cerebral ischemia (principal); G93.89 Other specified disorders of brain; M77.31 Calcaneal spur, right foot; R60.1 Generalized edema
CPT/HCPCS: 70450; 73610; G0463